=== PATIENT | male | born 1965 | race Caucasian/White ===

== ENCOUNTER 2018-06-04 07:43 | Inpatient (IN) ==
[2018-06-04] MEDS ORDERED: MoRPHine SULFATE 4 MG/ML 1 ML CARP\\VIAL IV STA ×2 (08:02→08:39)
--- NOTE | 2018-06-04 08:30 | XRay Report ---
SINGLE VIEW CHEST CLINICAL HISTORY: Atypical chest pain. FINDINGS: An AP, portable, upright chest radiograph is obtained. No prior studies are available for c omparison at the time of dictation. The examination is degraded by portable technique, apical lordoti c positioning, and patient rotation. The heart is top normal for projection. A coronary artery stent is noted. The mediastinal contour is within normal limits. Bibasilar atelectasis is observed. The domi ngs and pleural spaces are otherwise clear. No pneumothorax is seen. The bony thorax is grossly intac t. Fusion hardware is noted in the lower cervical spine. IMPRESSION: No acute cardiopulmonary abnormality. Electronically signed by: Jacob Duron M.D. 06/04/2018 8:29 AM
[2018-06-04 09:20] LABS: Basophils # (auto) 0.03 K/uL (0-0.2); Basophils % (auto) 0.4 %; Eosinophils # (auto) 0.13 K/uL (0-0.5); Eosinophils % (auto) 1.6 %; Hematocrit (blood only) 46.4 % (42-52); Immature Granulocytes # (auto) 0.02 K/uL (0.00-0.02); Immature Granulocytes % (auto) 0.2 %; Lymphocytes # (auto) 1.47 K/uL (1.2-3.4); Lymphocytes % (auto) 18.1 %; Mean Corpuscular Hgb Conc 34.5 g/dL (32-36); Mean Corpuscular Volume 87.2 fL (80-100); Mean Platelet Volume 11.7 fL (7.4-10.4); Monocytes # (auto) 0.68 K/uL (0.11-0.59); Monocytes % (auto) 8.4 %; Neutrophils # (auto) 5.81 K/uL (1.4-6.5); Neutrophils % (auto) 71.3 %; Platelet Count 165 K/uL (130-400); RDW Coefficient of Variation 12.6 % (11.5-14.5); RDW Standard Deviation 40.2 fL (36.4-46.3); Red Blood Count 5.32 M/uL (4.7-6.1); White Blood Count 8.14 K/uL (4.8-10.8)
[2018-06-04 09:27] LABS: Albumin Level 3.7 gm/dl (3.4-5.0); BUN Creatinine Ratio 18.4 (10-20); Calcium 9.2 mg/dl (8.5-10.1); Est GFR (African American) 106.2; Est GFR (Non-African American) 91.7; Potassium 3.6 mmol/L (3.5-5.1)
[2018-06-04 09:34] LABS: INR 0.9 (0.9-1.1); Partial Thromboplastin Ratio 0.9; Partial Thromboplastin Time 25.4 Seconds (21.0-31.0); Prothrombin Time 9.7 Seconds (9.0-12.0)
[2018-06-04 09:38] LABS: Bilirubin,Total 0.5 mg/dl (0.2-1); Globulin 3.8 gm/dl (2.5-4.0); Phosphorus 2.7 mg/dl (2.5-4.9); Total Protein 7.5 gm/dl (6.4-8.2); Troponin I 0.066 ng/ml (0-0.045)
[2018-06-04] MEDS ORDERED: OPTIRAY 320 125ml IV PRN (09:45)
[2018-06-04] MEDS ORDERED: NITROGLYCERIN 2% OINTMENT 30GM TUBE EXT STA (09:49)
[2018-06-04] MEDS ORDERED: fentaNYL citrate 100 MCG/2 ML VIAL IV ONE (09:49)
--- NOTE | 2018-06-04 09:58 | CT Scan Report ---
CT ANGIOGRAM OF THE CHEST CLINICAL HISTORY: Atypical chest pain. COMPARISON STUDY: Chest x-ray dated 06/04/2018. TECHNIQUE: Following the IV administration of 120 cc of Optiray 320, CT angiogram of the chest was pe rformed from the upper abdomen to the thoracic inlet utilizing the pulmonary embolus protocol. Images are reviewed in the axial, sagittal, and coronal planes. 3-D MIPS images are created and assessed. I V contrast was administered without complication. A dose lowering technique was utilized adhering to the principles of ALARA. CT DOSE: 562.80 mGy.cm FINDINGS: Thyroid: Imaged portions of the thyroid gland are normal in size and attenuation. Thoracic aorta: The thoracic aorta is normal in caliber and demonstrates standard 3-vessel arch anato my. No dissection is seen. Pulmonary vasculature: The pulmonary trunk is normal in caliber. There are no filling defects identif ied in main, lobar, or segmental pulmonary branches to suggest pulmonary embolus. Heart: The heart is enlarged and without pericardial effusion. There are coronary artery stents. Lungs and pleural spaces: The lung bases were partially excluded due to angiographic technique. There is no airspace consolidation or pleural effusion. Bibasilar atelectasis is noted. No airspace consol idation or pleural effusion is identified. Mediastinum: There is no mediastinal lymphadenopathy. Cristal: Clear. Axillae: There is no axillary lymphadenopathy. Upper abdomen: There is a small hiatal hernia. Partially visualized upper abdominal viscera is within normal limits. Skeletal structures: No lytic or blastic bony lesions are seen. Fusion hardware is noted in the lower cervical spine. IMPRESSION: 1. There is no evidence of pulmonary embolus in the main, lobar, or segmental pulmonary arteries. 2. Cardiomegaly. 3. There is no airspace consolidation or pleural effusion. Electronically signed by: Jacob Duron M.D. 06/04/2018 9:57 AM
[2018-06-04] MEDS ORDERED: HEPARIN SOD 5,000 UNIT/0.5 ML VIAL ONE (10:20)
[2018-06-04] MEDS ORDERED: HEPARIN 25000 UNIT/500 ML D5W IV ONE (10:20)
[2018-06-04] MEDS ORDERED: METOPROLOL TARTRATE 1 MG/ML VIAL IV STA (11:44)
[2018-06-04] MEDS ORDERED: METOPROLOL TARTRATE 1 MG/ML VIAL IV ONE (11:46)
--- NOTE | 2018-06-04 12:00 | Cardiology Consultation ---
Date of Consultation June 04, 2018 Assessment & Plan (1) Non-ST elevated myocardial infarction (non-STEMI): The patient's most recent recorded blood pressure when I got to see him included a systolic blood pressure in the range of 180. His blood pressure cuff was recycled and reading of 167/106 mmHg was obtained. Therefore ordered 5 mg of IV metoprolol. Topical nitroglycerin ointment is already in place. Due to his elevated troponin and ongoing symptoms suggestive angina, I believe his presentation is characteristic for a non-ST segment elevation myocardial infarction. I discussed the case with Dr. Cerrato of interventional cardiology, will plan for transfer from the emergency department to the cardiac catheterization laboratory. The patient has been seen by the hospitalist service, and arrangements are in process for him to have a telemetry bed for post procedure. The patient's prior to hospitalization doses of aspirin, clopidogrel, metoprolol, amlodipine, and rosuvastatin should be continued along with isosorbide mononitrate. History of Present Illness History of Present Illness Larry Hector is a 53 year old male seen in cardiology consultation in the emergency department per the request of Dr Fields for the evaluation of a suspected non ST elevation acute coronary syndrome. The patient has a long-standing history of coronary heart disease. His primary signal apprentice is Dr. Goldman of our practice. Patient has history of multiple previous coronary interventions/stents to the LAD on at least 2 occasions in [place], and stenting of the circumflex performed in [place] in the past. His most recent [place] coronary intervention took place in the fall 2016. He had previously had plain balloon angioplasty for in-stent restenosis of an LAD stent but had ongoing symptoms. He therefore underwent [place] cardiac [place] [facility] and underwent implantation of a drug- eluting stent within a previously placed stent. The patient had recurrent anginal symptoms in August, prompting repeat cardiac catheterization performed by Dr. Goldman at [facility]. Cardiac catheterization revealed patent LAD and circumflex stents at that time and therefore ongoing medication management was recommended. In the meantime, the patient states that he has been adherent to taking daily aspirin and clopidogrel. For about the last month however he has had recurrent exertional shortness of breath which is characteristic of his past anginal symptoms. This is progressed into being exertional chest tightness that radiates to his neck and left jaw. He has been taking upwards of 5-6 nitroglycerin tablets a day for relief over the last month. The symptoms have culminated with him having presented for his job at the [employer] He started his shift and at 3 AM experienced 10/15 chest discomfort. He presented to the emergency department. EKG x1 reveals diffuse T wave flattening without ST elevation. Compared to the prior EKG on file from August,, he had upright T waves in the inferior lateral leads at that time. His troponin is mildly elevated at 0.066 ng/ml. He has already had a CT angiogram which excluded pulmonary embolism. Currently in the emergency department, he has ongoing chest discomfort. An unfractionated heparin infusion has been initiated. Allergies Allergy/AdvReac Type Severity Reaction Status Date / Time cyclobenzaprine AdvReac Unknown Unverified 06/04/18 08:22 [From Piggybackr] Home Medications Home Medications Medication Instructions Recorded Confirmed Type amlodipine 2.5 mg PO DAILY 06/04/18 06/04/18 History aspirin [Aspir-81] 81 mg PO DAILY 06/04/18 06/04/18 History citalopram 20 mg PO DAILY 06/04/18 06/04/18 History clopidogrel 30 mg PO DAILY 06/04/18 06/04/18 History gabapentin 600 mg PO BID 06/04/18 06/04/18 History insulin aspart U-100 [Novolog 26 units SUBCUT TIDM 06/04/18 06/04/18 History Flexpen U-100 Insulin] isosorbide mononitrate 60 mg PO DAILY 06/04/18 06/04/18 History metoprolol tartrate 100 mg PO BID 06/04/18 06/04/18 History nitroglycerin [Nitrostat] 0.4 mg SUBLINGUAL UD 06/04/18 06/04/18 History pantoprazole 40 mg PO DAILY 06/04/18 06/04/18 History rosuvastatin 10 mg PO DAILY 06/04/18 06/04/18 History Patient History Medical History Diabetes Heart attack Presence of stent in LAD coronary artery Pulmonary embolism Social History Preferred Language: Guatemalan Feels Safe at Home: Yes Smoking Status: Never smoker Review of Systems 10 point review of systems reviewed and is negative with the exception of that above Physical Exam Vital Signs (Past 24 Hours): Last Vital Signs Temp 36.4 C L 06/04/18 07:47 Pulse 81 06/04/18 11:50 Resp 16 06/04/18 11:28 BP 167/106 H 06/04/18 11:50 Pulse Ox 97 06/04/18 10:28 Physical Exam: General: no acute distress and stated age Eyes: conjunctiva are pink and non-injected, sclera clear Neck: normal jugular venous pulse, no hepatojugular reflux Chest: normal shape and normal respiratory effort Lungs: clear to auscultation and percussion Cardiac Exam: - regular heart sounds, no murmurs, rubs, or gallops, no jugular venous distention Abdomen: abdomen soft, non-tender, no abnormal masses and no hepatosplenomegaly Extremities: no edema and no cyanosis Neuro:awake, coversant, follows commands, no focal motor deficits Psych: appropriate affect and insight. Results & Data Laboratory Results Cardiac Enzymes 06/04/18 Range/Units 08:06 AST 30 (15-37) U/L Troponin I 0.066 H* (0-0.045) ng/ml Coagulation 06/04/18 Range/Units 08:06 PT 9.7 (9.0-12.0) Seconds APTT 25.4 (21.0-31.0) Seconds CBC 06/04/18 Range/Units 08:06 WBC 8.14 (4.8-10.8) K/uL RBC 5.32 (4.7-6.1) M/uL Hgb 16.0 (14.0-18.0) g/dL Hct 46.4 (42-52) % Plt Count 165 (130-400) K/uL Neut # (Auto) 5.81 (1.4-6.5) K/uL Lymph # (Auto) 1.47 (1.2-3.4) K/uL Ada # (Auto) 0.68 H (0.11-0.59) K/uL Eos # (Auto) 0.13 (0-0.5) K/uL Baso # (Auto) 0.03 (0-0.2) K/uL Comprehensive Metabolic Panel 06/04/18 Range/Units 08:06 Sodium 137 (136-145) mmol/L Potassium 3.6 (3.5-5.1) mmol/L Chloride 103 (98-107) mmol/L Carbon Dioxide 31 (21-32) mmol/L BUN 18 (7-18) mg/dl Creatinine 0.95 (0.6-1.4) mg/dl Glucose 123 H (70-99) mg/dl Calcium 9.2 (8.5-10.1) mg/dl AST 30 (15-37) U/L ALT 45 (12-78) U/L Alkaline Phosphatase 112 (45-117) U/L Total Protein 7.5 (6.4-8.2) gm/dl Albumin 3.7 (3.4-5.0) gm/dl Intake and Output 06/03/18 06/04/18 06/04/18 22:59 06:59 14:59 Other: Weight 127 kg Patient Weight 06/05/18 06:59 Weight 127 kg Medications Administered Current Inpatient Medications Ioversol (Optiray 320 125ml) 120 ml IV ONCE PRN PRN Reason: Interaction Checking Stop: 06/08/18 09:44 Last Admin: 06/04/18 09:45 Dose: 1 ml Documented by:
[2018-06-04] MEDS ORDERED: ASPIRIN 81 MG CHEW PO STA (12:07)
--- NOTE | 2018-06-04 12:07 | History & Physical Report ---
Date of Service June 04, 2018 Assessment & Plan (1) Non-ST elevated myocardial infarction (non-STEMI): Spoke with cardiology - based on clinical history of progressive anginal symptoms and positive troponin, most likely diagnosis is NSTEMI - For cath today - Heparin gtt started in ED - Continue outpatient beta lesie, statin, aspirin, plavix, imdur. Pt was on Brillenta in the past but this was stopped due to concern that it was worsening shortness of breath - Monitor on telemetry - Follow troponin - Check lipid panel in AM - Check ECHO - pt cannot recall the last time this was done. (2) Diabetes: - Consult pharmacy for glycemic management - Check A1c in AM - Continue gabepentin for neuropathy (3) CAD (coronary artery disease): See above plan for NSTEMI (4) Dyslipidemia: - Continue outpatient statin therapy - clarified with patient that he is now on Crestor, not Lipitor as initially put in the med rec - Check lipid panel in AM (5) Diabetic neuropathy: (6) Acid reflux: - Continue outpatient PPI therapy - Consider adding H2 elsie for breakthrough symptoms (7) Essential hypertension: - Continue amlodipine, metoprolol as taken outpatient Pt reviewed with collaborating physician, Dr. Myers. Plan of care discussed and as outlined above - may adjust pending results of cath today. Await results of ECHO. updated at bedside. Pt to be followed starting tomorrow by Dr. Martinez. Bryant Garcia PA-C History of Present Illness Primary Care Provider: PCP - Werner Conway This is a 53 y/o male with a past history of CAD with stent placements, insulin- requiring diabetes with peripheral neuropathy, pulmonary embolus, hypertension and GERD who presents to the ED today with progressive dyspnea and chest pain, particularly on exertion. Pt reports his first cardiac cath was around 2014- 2015 when he had at least one stent placed. In September 2016, he underwent repeat cardiac cath due to anginal symptoms and was treated with PTCA for in-stent restenosis. He reports improvement that lasted about a month. He then decided to go to [place] for a second opinion. Had another cardiac cath on 12/31/16 during which a drug-eluting stent was placed in the prior placed stent in the L AD. He did have some improvement after this procedure until summer 2017 when he started with progressive respiratory symptoms. Seen again by cardiology (following locally with Dr. Goldman) and underwent repeat cardiac cath on 09/16/17 that was negative. He reports continued chest pain since that time which he describes as a chronic issue. Lost to cardiology follow-up after the cath. Over the past month, pt reports progressive chest pain and dyspnea but particularly worse the past two weeks. His main complaint is dyspnea on exertion, particularly with steps, eating or talking for long periods. He can do no more than one flight of steps before he has to stop and rest for a few minutes. His chest pain also gets worse with exertion. He describes a mostly non-productive cough although occasionally brings up white foamy sputum that is rarely blood-tinged (typically related to coughing hard). He has been sleeping more than usual and is feels easily fatigued. He notes orthopnea requiring him to sleep propped on 3-4 pillows. He gets lightheaded with exertion followed by increased fatigue. Denies syncopal episodes. He has noted a sensation of "skipped beats" but denies "racing heart." The chronic chest pain has been worse over the past two weeks - it may radiate to left jaw/shoulder and to back. He has been taking up to seven nitro per day for this pain with only partial relief. Appetite is decreased with nausea and heartburn at times but no vomiting. He does take pantoprazole 20 mg daily. Moving bowels at baseline of 4-5x/day - no melena or hematochezia. The patient has a history of insulin- requiring diabetes - he reports last A1c was around 9 (apparently improved from a high of 14). Allergies Allergy/AdvReac Type Severity Reaction Status Date / Time cyclobenzaprine AdvReac Unknown Unverified 06/04/18 08:22 [From Flexeril] Home Medications Home Medications Medication Instructions Recorded Confirmed Type amlodipine 2.5 mg PO DAILY 06/04/18 06/04/18 History aspirin [Aspir-81] 81 mg PO DAILY 06/04/18 06/04/18 History citalopram 20 mg PO DAILY 06/04/18 06/04/18 History clopidogrel 30 mg PO DAILY 06/04/18 06/04/18 History gabapentin 600 mg PO BID 06/04/18 06/04/18 History insulin aspart U-100 [Novolog 26 units SUBCUT TIDM 06/04/18 06/04/18 History Flexpen U-100 Insulin] isosorbide mononitrate 60 mg PO DAILY 06/04/18 06/04/18 History metoprolol tartrate 75 mg PO BID 06/04/18 06/04/18 History nitroglycerin [Nitrostat] 0.4 mg SUBLINGUAL UD 06/04/18 06/04/18 History pantoprazole 40 mg PO DAILY 06/04/18 06/04/18 History rosuvastatin 10 mg PO DAILY 06/04/18 06/04/18 History Past Med/Surg History Medical History Diabetes Insulin-requiring CAD (coronary artery disease) Dyslipidemia Diabetic neuropathy Acid reflux Essential hypertension Heart attack Presence of stent in LAD coronary artery Pulmonary embolism Surgical History History of hernia surgery History of spinal surgery Hx of cardiac cath 2014/2015, 2017 x2, 2018 Social History Preferred Language: Canadian Feels Safe at Home: Yes Smoking Status: Never smoker Hx Substance Use: No Review of Systems All systems reviewed & are unremarkable except as noted in HPI & below Constitutional: + fatigue and + anorexia; no fever, no chills and no malaise Eyes: no diplopia and no worsening vision Ear, Nose, Mouth, Throat: no nasal congestion, no sore throat and no dysphagia Respiratory: + cough and + dyspnea on exertion; no chest congestion and no wheezing Cardiovascular: + chest pain, + chest pain with activity, + radiating jaw, neck or arm pain, + orthopnea, + paroxysmal nocturnal dyspnea, + lightheadedness and + edema; no syncope Gastrointestinal: + heartburn and + nausea; no abdominal pain, no vomiting, no change in bowel habits, no blood in stools and no melena Genitourinary (Male): + urinary frequency; no dysuria, no difficulty urinating and no urinary hesitancy Musculoskeletal: + back pain and + joint pain (chronic) Integumentary: no rash and no urticaria Neurologic: + headache(s); no falls, no seizure-like activity and no syncope Chronic neuropathy related to diabetes Psychiatric: no depression and no anxiety Physical Exam Vital Signs (Past 24 Hours): Last Vital Signs Temp 36.4 C L 06/04/18 07:47 Pulse 81 06/04/18 11:50 Resp 16 06/04/18 11:28 BP 167/106 H 06/04/18 11:50 Pulse Ox 97 04/05/19 10:28 Constitutional: WD/WN, vitals as above Eyes: PERRL, conjunctivae normal, anicteric sclerae EOM intact bilaterally ENMT: external ear and nose normal, oropharynx normal Neck: trachea midline Respiratory: normal respiratory effort, lungs clear to auscultation Auscultation: no rales, no rhonchi and no wheezes Cardiovascular: Rate/Rhythm: regular rate and regular rhythm Heart Sounds: + murmur; no gallop and no cardiac rub Vessels: no JVD and no carotid bruit Gastrointestinal (Abdomen): Inspection/Auscultation: normal bowel sounds; abdomen not distended Percussion/Palpation: abdomen soft; abdomen nontender Musculoskeletal: Extremities: no cyanosis and no clubbing Skin: no rashes, warm and dry normal turgor; no jaundice Neurologic: moves all extremities; no focal motor deficits Cranial Nerves: tongue midline and able to rotate head bilaterally Psychiatric: A+Ox3, euthymic affect Results & Data Laboratory Results Laboratory Results - last 24 hr 06/04/18 06/04/18 06/04/18 08:06 08:06 08:06 WBC 8.14 RBC 5.32 Hgb 16.0 Hct 46.4 MCV 87.2 MCH 30.1 MCHC 34.5 RDW Std Deviation 40.2 RDW Coeff of Chan 12.6 Plt Count 165 MPV 11.7 H Immature Gran % (Auto) 0.2 Neut % (Auto) 71.3 Lymph % (Auto) 18.1 Perkins % (Auto) 8.4 Eos % (Auto) 1.6 Baso % (Auto) 0.4 Immature Gran # (Auto) 0.02 Neut # (Auto) 5.81 Lymph # (Auto) 1.47 Perkins # (Auto) 0.68 H Eos # (Auto) 0.13 Baso # (Auto) 0.03 PT 9.7 INR 0.9 APTT 25.4 PTT Ratio 0.9 Sodium 137 Potassium 3.6 Chloride 103 Carbon Dioxide 31 Anion Gap 4.0 BUN 18 Creatinine 0.95 Est Cr Clr Drug Dosing 127.0 Est GFR ( Amer) 106.2 Est GFR (Non-Af Amer) 91.7 BUN/Creatinine Ratio 18.4 Glucose 123 H Calcium 9.2 Phosphorus 2.7 Magnesium 2.0 Total Bilirubin 0.5 AST 30 ALT 45 Alkaline Phosphatase 112 Troponin I 0.066 H* NT-Pro-B Natriuret Pep Total Protein 7.5 Albumin 3.7 Globulin 3.8 Albumin/Globulin Ratio 1.0 Lipase 69 L 06/04/18 08:06 WBC RBC Hgb Hct MCV MCH MCHC RDW Std Deviation RDW Coeff of Chan Plt Count MPV Immature Gran % (Auto) Neut % (Auto) Lymph % (Auto) Perkins % (Auto) Eos % (Auto) Baso % (Auto) Immature Gran # (Auto) Neut # (Auto) Lymph # (Auto) Perkins # (Auto) Eos # (Auto) Baso # (Auto) PT INR APTT PTT Ratio Sodium Potassium Chloride Carbon Dioxide Anion Gap BUN Creatinine Est Cr Clr Drug Dosing Est GFR ( Amer) Est GFR (Non-Af Amer) BUN/Creatinine Ratio Glucose Calcium Phosphorus Magnesium Total Bilirubin AST ALT Alkaline Phosphatase Troponin I NT-Pro-B Natriuret Pep 60 Total Protein Albumin Globulin Albumin/Globulin Ratio Lipase Diagnostic Findings CXR 06/04/18 - IMPRESSION: No acute cardiopulmonary abnormality. Chest CTA 06/04/18 - IMPRESSION: 1. There is no evidence of pulmonary embolus in the main, lobar, or segmental pulmonary arteries. 2. Cardiomegaly. 3. There is no airspace consolidation or pleural effusion. Medications Administered Ioversol (Optiray 320 125ml) 120 ml IV ONCE PRN PRN Reason: Interaction Checking Stop: 06/08/18 09:44 Last Admin: 06/04/18 09:45 Dose: 1 ml Documented by: [id number] Discontinued Medications Fentanyl Citrate (Fentanyl Citrate) 100 mcg IV NOW ONE Stop: 06/04/18 09:50 Last Admin: 06/04/18 09:59 Dose: 100 mcg Documented by: [id number] Heparin Sodium (Porcine) (Heparin Sodium (Porcine)) Confirm Administered Dose 10,000 units .ROUTE .STK-MED ONE Stop: 06/04/18 10:21 Last Admin: 06/04/18 10:24 Dose: 8,000 units Documented by: [id number] Cosigned by: [id number] Heparin Sodium/Dextrose () 1 ea IV NOW STA; Protocol Stop: 06/04/18 09:50 Last Admin: 06/04/18 10:30 Dose: Not Given Documented by: [id number] Heparin Sodium/Dextrose (Heparin Sodium/Dextrose) Confirm Administered Dose 25,000 units IV .STK-MED ONE Stop: 06/04/18 10:21 Last Admin: 06/04/18 10:23 Dose: 1,800 units Documented by: [id number] Cosigned by: [id number] Metoprolol Tartrate (Lopressor) Confirm Administered Dose 5 mg IV .STK-MED ONE Stop: 06/04/18 11:47 Last Admin: 06/04/18 11:50 Dose: 5 mg Documented by: [id number] Morphine Sulfate (Morphine Sulfate) 4 mg IV NOW STA Stop: 06/04/18 08:03 Last Admin: 06/04/18 08:15 Dose: 4 mg Documented by: [id number] Morphine Sulfate (Morphine Sulfate) 4 mg IV NOW STA Stop: 06/04/18 08:40 Last Admin: 06/04/18 08:50 Dose: 4 mg Documented by: [id number] Nitroglycerin (Nitro-Bid 2%) 1 inch EXT NOW STA Stop: 06/04/18 09:50 Last Admin: 06/04/18 09:59 Dose: 1 inch Documented by: [id number] Supervising Physician Co-Signing Physician Notes I have seen and examined the patient and have discussed the case with the provider above. I agree with the assessment and plan as stated. Tolerated the heart catheterization well. Denies chest pain. In stent restenosis was found and ANNIKA was placed to mid-LAD. Continue to recover on telemetry floor pending further Cardiology recommendations. DO Louis (1) Diabetic neuropathy Diabetes mellitus complication detail: diabetic polyneuropathy Diabetes mellitus type: type 2 Qualified Code(s): E11.42 - Type 2 diabetes mellitus with diabetic polyneuropathy (2) Diabetes Diabetes mellitus complication detail: with unspecified neuropathy Diabetes mellitus complication status: with neurologic complications Diabetes mellitus penitentiary insulin use: with penitentiary use Diabetes mellitus type: type 2 Qualified Code(s): E11.40 - Type 2 diabetes mellitus with diabetic neuropathy, unspecified; Z79.4 - [employer] (current) use of insulin (3) CAD (coronary artery disease) Associated angina: with unspecified angina Coronary Disease-Associated Artery/Lesion type: [place] artery [place] vs. transplanted heart: [place] heart Qualified Code(s): I25.119 - Atherosclerotic heart disease of [place] coronary artery with unspecified angina pectoris (4) Acid reflux Esophagitis presence: esophagitis presence not specified Qualified Code(s): K21.9 - Gastro-esophageal reflux disease without esophagitis
[2018-06-04] MEDS ORDERED: MIDAZOLAM HCL 1 MG/ML 2ML VIAL ONE (12:22)
[2018-06-04] MEDS ORDERED: HEPARIN (PORCINE) 1000 UNIT/ML 10 ML (CATH LAB USE ONLY) ONE (12:22)
[2018-06-04] MEDS ORDERED: NiCARDipine HCL INJ 2.5 MG/ML 10 ML AMP ONE (12:22)
[2018-06-04] MEDS ORDERED: fentaNYL citrate 100 MCG/2 ML VIAL ONE (12:22)
[2018-06-04] MEDS ORDERED: NITROGLYCERIN/D5W 100MCG/ML 20ML SYR ONE (12:24)
[2018-06-04] MEDS ORDERED: ASPIRIN 81 MG CHEW ONE (12:26)
[2018-06-04] MEDS ORDERED: CLOPIDOGREL BISULFATE 300 MG TAB ONE (14:31)
--- NOTE | 2018-06-04 14:34 | Emergency Department Note ---
Entered by Lizzie Alejo acting as a scribe for History of Present Illness General Chief complaint: Chest Pain Stated complaint: chest pain Time Seen by Provider: 06/04/18 07:49 Source: patient History of Present Illness Provider complaint: chest pain Onset (ago): week(s) 2 Location: chest Pain Consistency: + other (persistent) Maximum Pain Intensity: 9 Quality: + other (worsening) Associated symptoms: + other (shortness of breath, productive cough, weight gain, leg swelling, nausea. Denies: urinary symptoms, bowel movement symptoms, changes in eating or drinking.) Treatments prior to arrival: other (nitroglycerin) The patient is a 53 year old white male w/ PMHx of [place], s/p stent placement, PE, and diabetes who presents to the ED w/ CC of persistent, worsening chest pain beginning 2 weeks ago. He notes shortness of breath that is exacerbated by laying flat, walking, and eating. The patient states he has a productive cough, and has been producing white sputum. He notes weight gain and swelling in his legs. The patient states he has been nauseous. He denies urinary symptoms, bowel movement symptoms, or changes in eating or drinking. The patient denies recent travel. He states he has been taking nitroglycerin, and took about 6 today, which did not improve his symptoms. The patient reports he takes Plavix and baby aspirin daily. Home Medications Home Medications Medication Instructions Recorded Confirmed Type amlodipine 2.5 mg PO DAILY 06/04/18 06/04/18 History aspirin [Aspir-81] 81 mg PO DAILY 06/04/18 06/04/18 History citalopram 20 mg PO DAILY 06/04/18 06/04/18 History clopidogrel 30 mg PO DAILY 06/04/18 06/04/18 History gabapentin 600 mg PO BID 06/04/18 06/04/18 History insulin aspart U-100 [Novolog 26 units SUBCUT TIDM 06/04/18 06/04/18 History Flexpen U-100 Insulin] isosorbide mononitrate 60 mg PO DAILY 06/04/18 06/04/18 History metoprolol tartrate 100 mg PO BID 06/04/18 06/04/18 History nitroglycerin [Nitrostat] 0.4 mg SUBLINGUAL UD 06/04/18 06/04/18 History pantoprazole 40 mg PO DAILY 06/04/18 06/04/18 History rosuvastatin 10 mg PO DAILY 06/04/18 06/04/18 History Allergies Allergy/AdvReac Type Severity Reaction Status Date / Time cyclobenzaprine AdvReac Unknown Unverified 06/04/18 08:22 [From Flexeril] Past Med/Surg History Medical History Diabetes Insulin-requiring CAD (coronary artery disease) Dyslipidemia Diabetic neuropathy Acid reflux Essential hypertension Heart attack Presence of stent in LAD coronary artery Pulmonary embolism Surgical History History of hernia surgery History of spinal surgery Hx of cardiac cath 2014/2015, 2017 x2, 2018 Social History Preferred Language: Greek Feels Safe at Home: Yes Smoking Status: Never smoker Hx Substance Use: No Review of Systems See HPI for pertinent positives & negatives. and A total of 10 systems reviewed and were otherwise negative Physical Exam Vital Signs Vital Signs - 24 hr 06/04/18 07:47 06/04/18 08:48 06/04/18 09:49 Temperature 36.4 C L Temperature Source Oral Sepsis Recent Fever Within 48 Hours No Sepsis New/Unexplained Change in Mental Status No Sepsis Action Taken by Nursing No Action Required Pulse Rate 82 Pulse Rate [Apical] 78 76 Respiratory Rate 18 16 18 Respiratory Effort / Characteristics Non-Labored Respiratory Depth Normal Normal Respiratory Pattern Regular Blood Pressure 164/100 H Blood Pressure [Right Arm] 136/76 191/112 H Blood Pressure Mean 121 Blood Pressure Mean [Right Arm] 96 138 Blood Pressure Position Lying Pulse Oximetry 97 97 97 Oxygen Delivery Method Room Air Room Air Room Air 06/04/18 10:28 06/04/18 11:28 06/04/18 11:50 Temperature Temperature Source Sepsis Recent Fever Within 48 Hours Sepsis New/Unexplained Change in Mental Status Sepsis Action Taken by Nursing Pulse Rate 81 Pulse Rate [Apical] 74 73 Respiratory Rate 16 16 Respiratory Effort / Characteristics Respiratory Depth Respiratory Pattern Blood Pressure 167/106 H Blood Pressure [Right Arm] 132/70 189/118 H Blood Pressure Mean Blood Pressure Mean [Right Arm] 90 141 Blood Pressure Position Pulse Oximetry 97 Oxygen Delivery Method Room Air GENERAL: Well appearing, well nourished, NAD, non-toxic. EYE EXAM: Normal conjunctiva. PERRL, no anisocoria and EOM's grossly intact w/o pain. OROPHARYNX: Moist MM. NECK: Supple, no nuchal rigidity, no adenopathy, non-tender. No signs of meningismus. LUNGS: Clear to auscultation. Normal chest wall mechanics. HEART: NSR, no MRG. CHEST WALL: No reproducible chest wall pain ABDOMEN: Abdomen soft, non-tender, normo-active bowel sounds, no masses, no rebound or guarding. BACK: No CVA TTP. SKIN: No rashes and no bruising. UPPER EXTREMITIES: Upper extremities are grossly normal. LOWER EXTREMITIES: No calf pain. 1+ pretibial edema, 2+ pedal edema to ankles, no asymmetric swelling. Negative Homans. NEURO EXAM: A and O x3. GCS 15. Moves all 4 extremities on command w/o issue. Course 0755: Past medical records reviewed. The patient was evaluated in room C2B, and a complete history and physical examination were performed. 1009: I discussed the patients case with Dr. Pruitt, central aisle cashier. 1037: I reviewed the patient's case with Aury Garcia PA-C, [facility]. She will evaluate the patient for further management. 1041: Upon reevaluation, the patient is resting. I discussed test results. They verbalized agreement with the treatment plan. 1215: Discussed the case with Dr. Pruitt, central aisle cashier. He has evaluated the patient and will take him to the label coder. Consultations Consultation #1: Dr. Pruitt, central aisle cashier. Time: 10:09 Consultation #2: Aury Garcia PA-C, [facility] Time: 10:37 Administered Medications Ioversol (Optiray 320 125ml) 120 ml IV ONCE PRN PRN Reason: Interaction Checking Stop: 06/08/18 09:44 Last Admin: 06/04/18 09:45 Dose: 1 ml Documented by: [id number] Discontinued Medications Aspirin (Aspirin Chew) 283 mg PO NOW STA Stop: 06/04/18 12:08 Last Admin: 06/04/18 12:40 Dose: 283 mg Documented by: [id number] Aspirin (Aspirin Chew) Confirm Administered Dose 243 mg .ROUTE .STK-MED ONE Stop: 06/04/18 12:27 Last Admin: 06/04/18 12:41 Dose: Not Given Documented by: [id number] Fentanyl Citrate (Fentanyl Citrate) 100 mcg IV NOW ONE Stop: 06/04/18 09:50 Last Admin: 06/04/18 09:59 Dose: 100 mcg Documented by: [id number] Heparin Sodium (Porcine) (Heparin Sodium (Porcine)) Confirm Administered Dose 10,000 units .ROUTE .STK-MED ONE Stop: 06/04/18 10:21 Last Admin: 06/04/18 10:24 Dose: 8,000 units Documented by: [id number] Cosigned by: [id number] Heparin Sodium/Dextrose () 1 ea IV NOW STA; Protocol Stop: 06/04/18 09:50 Last Admin: 06/04/18 10:30 Dose: Not Given Documented by: [id number] Heparin Sodium/Dextrose (Heparin Sodium/Dextrose) Confirm Administered Dose 25,000 units IV .STK-MED ONE Stop: 06/04/18 10:21 Last Admin: 06/04/18 10:23 Dose: 1,800 units Documented by: [id number] Cosigned by: [id number] Heparin Sodium/Sodium Chloride (Heparin/Nss 1000 Unit/500ml Flush Bag) Confirm Administered Dose 3,000 units IV .ST-MED ONE Stop: 06/04/18 12:23 Last Admin: 06/04/18 12:40 Dose: 3,000 units Documented by: [id number] Metoprolol Tartrate (Lopressor) Confirm Administered Dose 5 mg IV .ST-MED ONE Stop: 06/04/18 11:47 Last Admin: 06/04/18 11:50 Dose: 5 mg Documented by: [id number] Morphine Sulfate (Morphine Sulfate) 4 mg IV NOW STA Stop: 06/04/18 08:03 Last Admin: 06/04/18 08:15 Dose: 4 mg Documented by: [id number] Morphine Sulfate (Morphine Sulfate) 4 mg IV NOW STA Stop: 06/04/18 08:40 Last Admin: 06/04/18 08:50 Dose: 4 mg Documented by: [id number] Nicardipine HCl (Cardene) Confirm Administered Dose 25 mg .ROUTE .STK-MED ONE Stop: 06/04/18 12:23 Last Admin: 06/04/18 12:40 Dose: 25 mg Documented by: [id number] Nitroglycerin (Nitro-Bid 2%) 1 inch EXT NOW STA Stop: 06/04/18 09:50 Last Admin: 06/04/18 09:59 Dose: 1 inch Documented by: [id number] Nitroglycerin/Dextrose (Nitroglycerin/D5w 100 Mcg/Ml 20ml Syringe) Confirm Administered Dose 2,000 mcg .ROUTE .STK-MED ONE Stop: 06/04/18 12:25 Last Admin: 06/04/18 12:41 Dose: 2,000 mcg Documented by: [id number] Medical Decision Making Medical Records Attestation: I reviewed the patient's medical records. Home Medications Current Medication List: was personally reviewed by me Laboratory Data Attestation: I reviewed the patient's lab results. Result diagrams: 06/04/18 08:06 06/04/18 08:06 Lab Results 06/04/18 06/04/18 06/04/18 Range/Units 08:06 08:06 08:06 WBC 8.14 (4.8-10.8) K/uL RBC 5.32 (4.7-6.1) M/uL Hgb 16.0 (14.0-18.0) g/dL Hct 46.4 (42-52) % MCV 87.2 (80-100) fL MCH 30.1 (25-34) pg MCHC 34.5 (32-36) g/dL RDW Std Deviation 40.2 (36.4-46.3) fL RDW Coeff of Chan 12.6 (11.5-14.5) % Plt Count 165 (130-400) K/uL MPV 11.7 H (7.4-10.4) fL Immature Gran % (Auto) 0.2 % Neut % (Auto) 71.3 % Lymph % (Auto) 18.1 % Randolph % (Auto) 8.4 % Eos % (Auto) 1.6 % Baso % (Auto) 0.4 % Immature Gran # (Auto) 0.02 (0.00-0.02) K/uL Neut # (Auto) 5.81 (1.4-6.5) K/uL Lymph # (Auto) 1.47 (1.2-3.4) K/uL Randolph # (Auto) 0.68 H (0.11-0.59) K/uL Eos # (Auto) 0.13 (0-0.5) K/uL Baso # (Auto) 0.03 (0-0.2) K/uL PT 9.7 (9.0-12.0) Seconds INR 0.9 (0.9-1.1) APTT 25.4 (21.0-31.0) Seconds PTT Ratio 0.9 Sodium 137 (136-145) mmol/L Potassium 3.6 (3.5-5.1) mmol/L Chloride 103 (98-107) mmol/L Carbon Dioxide 31 (21-32) mmol/L Anion Gap 4.0 (3-11) BUN 18 (7-18) mg/dl Creatinine 0.95 (0.6-1.4) mg/dl Est Cr Clr Drug Dosing 127.0 ml/min Est GFR ( Amer) 106.2 Est GFR (Non-Af Amer) 91.7 BUN/Creatinine Ratio 18.4 (10-20) Glucose 123 H (70-99) mg/dl Calcium 9.2 (8.5-10.1) mg/dl Phosphorus 2.7 (2.5-4.9) mg/dl Magnesium 2.0 (1.8-2.4) mg/dl Total Bilirubin 0.5 (0.2-1) mg/dl AST 30 (15-37) U/L ALT 45 (12-78) U/L Alkaline Phosphatase 112 (45-117) U/L Troponin I 0.066 H* (0-0.045) ng/ml NT-Pro-B Natriuret Pep (0-900) pg/ml Total Protein 7.5 (6.4-8.2) gm/dl Albumin 3.7 (3.4-5.0) gm/dl Globulin 3.8 (2.5-4.0) gm/dl Albumin/Globulin Ratio 1.0 (0.9-2) Lipase 69 L (73-393) U/L 06/04/18 Range/Units 08:06 WBC (4.8-10.8) K/uL RBC (4.7-6.1) M/uL Hgb (14.0-18.0) g/dL Hct (42-52) % MCV (80-100) fL MCH (25-34) pg MCHC (32-36) g/dL RDW Std Deviation (36.4-46.3) fL RDW Coeff of Chan (11.5-14.5) % Plt Count (130-400) K/uL MPV (7.4-10.4) fL Immature Gran % (Auto) % Neut % (Auto) % Lymph % (Auto) % Randolph % (Auto) % Eos % (Auto) % Baso % (Auto) % Immature Gran # (Auto) (0.00-0.02) K/uL Neut # (Auto) (1.4-6.5) K/uL Lymph # (Auto) (1.2-3.4) K/uL Randolph # (Auto) (0.11-0.59) K/uL Eos # (Auto) (0-0.5) K/uL Baso # (Auto) (0-0.2) K/uL PT (9.0-12.0) Seconds INR (0.9-1.1) APTT (21.0-31.0) Seconds PTT Ratio Sodium (136-145) mmol/L Potassium (3.5-5.1) mmol/L Chloride (98-107) mmol/L Carbon Dioxide (21-32) mmol/L Anion Gap (3-11) BUN (7-18) mg/dl Creatinine (0.6-1.4) mg/dl Est Cr Clr Drug Dosing ml/min Est GFR ( Amer) Est GFR (Non-Af Amer) BUN/Creatinine Ratio (10-20) Glucose (70-99) mg/dl Calcium (8.5-10.1) mg/dl Phosphorus (2.5-4.9) mg/dl Magnesium (1.8-2.4) mg/dl Total Bilirubin (0.2-1) mg/dl AST (15-37) U/L ALT (12-78) U/L Alkaline Phosphatase (45-117) U/L Troponin I (0-0.045) ng/ml NT-Pro-B Natriuret Pep 60 (0-900) pg/ml Total Protein (6.4-8.2) gm/dl Albumin (3.4-5.0) gm/dl Globulin (2.5-4.0) gm/dl Albumin/Globulin Ratio (0.9-2) Lipase (73-393) U/L Imaging Data Radiologist's Impression: Radiology results as stated below per my review and the radiologist's interpretation: SINGLE VIEW CHEST CLINICAL HISTORY: Atypical chest pain. FINDINGS: An AP, portable, upright chest radiograph is obtained. No prior studies are available for comparison at the time of dictation. The examination is degraded by portable technique, apical lordotic positioning, and patient rotation. The heart is top normal for projection. A coronary artery stent is noted. The mediastinal contour is within normal limits. Bibasilar atelectasis is observed. The lungs and pleural spaces are otherwise clear. No pneumothorax is seen. The bony thorax is grossly intact. Fusion hardware is noted in the lower cervical spine. IMPRESSION: No acute cardiopulmonary abnormality. Electronically signed by: Jacob Duron M.D. 06/04/2018 8:[address] ANGIOGRAM OF THE CHEST CLINICAL HISTORY: Atypical chest pain. COMPARISON STUDY: Chest x-ray dated 06/04/2018. TECHNIQUE: Following the IV administration of 120 cc of Optiray 320, CT angiogram of the chest was performed from the upper abdomen to the thoracic inlet utilizing the pulmonary embolus protocol. Images are reviewed in the ax ial, sagittal, and coronal planes. 3-D MIPS images are created and assessed. IV contrast was administered without complication. A dose lowering technique was utilized adhering to the principles of ALARA. CT DOSE: 562.80 mGy.cm FINDINGS: Thyroid: Imaged portions of the thyroid gland are normal in size and attenuation. Thoracic aorta: The thoracic aorta is normal in caliber and demonstrates sta ndard 3-vessel arch anatomy. No dissection is seen. Pulmonary vasculature: The pulmonary trunk is normal in caliber. There are no filling defects identified in main, lobar, or segmental pulmonary branches to suggest pulmonary embolus. Heart: The heart is enlarged and without pericardial effusion. There are coronary artery stents. Lungs and pleural spaces: The lung bases were partially excluded due to angiographic technique. There is no airspace consolidation or pleural effusion. Bibasilar atelectasis is noted. No airspace consolidation or pleural effusion is identified. Mediastinum: There is no mediastinal lymphadenopathy. Cristal: Clear. Axillae: There is no axillary lymphadenopathy. Upper abdomen: There is a small hiatal hernia. Partially visualized upper abdominal viscera is within normal limits. Skeletal structures: No lytic or blastic bony lesions are seen. Fusion hardware is noted in the lower cervical spine. IMPRESSION: 1. There is no evidence of pulmonary embolus in the main, lobar, or segmental pulmonary arteries. 2. Cardiomegaly. 3. There is no airspace consolidation or pleural effusion. Electronically signed by: Jacob Duron M.D. 06/04/2018 9:57 AM ECG Data Attestation: I personally reviewed and interpreted this ECG as follows: Indication: chest pain Rate (beats per minute): 81 Rhythm: normal sinus Findings: + other (Normal intervals. Normal axis. ), + Q waves (Lead 3), + ST depression (Questionably, very slight, in lateral leads. ) and + T-wave inversion (High lateral) Blood Pressure Blood Pressure Findings: Elevated blood pressure Blood Pressure Disposition: further management by hospitalist MDM Narrative The patient is a 53 year old white male w/ PMHx of [place], s/p stent placement, PE, and diabetes who presents to the ED w/ CC of persistent, worsening chest pain beginning 2 weeks ago. Etiologies such as shingles, musculoskeletal pain, pericarditis, myocarditis, cardiac ischemia, pericardial tamponade, pneumonia, pneumothorax, pleural effusion, hemothorax, pleurisy, aortic pathology, pulmonary embolism, intra- abdominal process, as well as others were considered. Patient was seen and evaluated the bedside. The patient was complaining of worsening chest pain associated shortness of breath. The patient does have a known history of CAD status post stent placement. Patient was having persistent chest pain not amenable to nitro. The patient does complain of a mild productiv e cough but it is not purulent sputum. The patient did have blood work completed along with EKG troponin chest x-ray. Patient's EKG shows some mild T wave inversion in the high lateral leads and very slight depression questionably in the lateral leads. Patient's troponin is positive. Given the patient's ongoing chest pain he was ordered additional Nitropaste and heparin drip. He was also given aspirin. I did speak with the on-call central aisle cashier as well as hospitalist. After further discussion with the central aisle cashier that will be taken the patient to the catheterization lab for a heart catheterization. Patient was admitted to the medicine service. Impression & Plan Non-ST elevated myocardial infarction (non-STEMI) Critical Care Time I have personally spent greater than 80 minutes of critical care time in the direct management of this patient. This includes bedside care, interpretation of diagnostic studies, and testing, discussion with consultants, patient, and family members, and other required patient management activities. This 80 minutes is in excess of all separately billable procedures. Critical Care Time: Yes Total Critical Care Time: 80 Discharge Plan Visit Data Chief Complaint: Chest Pain Stated Complaint: chest pain ED Provider: Cuauhtemoc Fields Discharge Problem: Non-ST elevated myocardial infarction (non-STEMI) Patient Disposition: Being Evaluated by Hospitalist Discharge Instructions Interventions: ED Discharge Assessment Last Done: 06/04/18 12:18 The scribe's documentation has been prepared under my direction and personally reviewed by me in its entirety. I confirm that the note above accurately reflects all work, treatment, procedures, and medical decision making performed by me.
--- NOTE | 2018-06-04 14:35 | Post Anesthesia Assessment ---
Date of Service June 04, 2018 Post Sedation Assessment Vital Signs Temp Pulse Pulse Resp BP BP Pulse Ox 06/04/18 11:50 81 167/106 H 06/04/18 11:28 73 16 189/118 H 06/04/18 10:28 74 16 132/70 97 06/04/18 09:49 76 18 191/112 H 97 06/04/18 08:48 78 16 136/76 97 06/04/18 07:47 36.4 C L 82 18 164/100 H 97 Recovery Score Activity: Moves 4 extremities Respiration: Deep Breath/Cough Circulation: +/-20% PreAnes Value Consciousness: Fully Awake Oxygen Saturation: O2 needed for >90% Discharge Sedation Level of Care: Fast Track Phase II Post Sedation Plan On clinical assessment, the patient appears to have tolerated the sedation without complications. Patient is recovering as anticipated. Patient will continue to be monitored by nursing and may be discharged when sedation discharge criteria are met per below protocol. Upon Completions of procedure and additional 15 minutes continue every 5 minute vital signs and the P.A.R. score; then discharge to a Phase I or Fast Track to Phase II per the following guidelines: * Discharge Patient to appropriate Phase II area if PAR is 8 or greater or return to pre- procedure baseline. The post - procedure orders will be as directed. * If PAR score is less than 8 or not return to pre-procedure baseline then patient will follow Phase I monitoring till PAR is reached for Phase II. The Phase I may be done in procedure room or may call to secure a Phase I area. * If naloxone or flumazenil are used for reversal, hold in Phase I for continued monitoring from when last reversal dose was given for a minimum of 60 minutes or longer pending the nurse and/or physician discretion of patient condition before discharge to Phase II. Please call the Sedation Physician to re-evaluate and complete post-note for discharge to Phase II area. Do NOT discharge from procedure sedation or Phase 1 until post- sedation evaluation note is complete by procedure /sedation MD Sedation Discharge Instructions to be given to the patient at discharge to home.
[2018-06-04] MEDS ORDERED: ONDANSETRON INJ 2 MG/ML 2 ML VIAL IV PRN (14:42)
[2018-06-04] MEDS ORDERED: ACETAMINOPHEN 325 MG TAB PO PRN (14:42)
--- NOTE | 2018-06-04 14:42 | Cardiac Catheterization ---
Cardiac Cath Procedure: Brief Procedure Date June 04, 2018 Pre-Procedure Diagnosis Pre-Procedure Diagnosis: Non STEMI AUC Score AUC Score: 7 Post-Procedure Diagnosis Post-Procedure Diagnosis: Severe CAD and Successful PCI Procedure(s) Performed Procedure(s) Performed: Coronary Angiography, Left Heart Cath, PTCA, Drug Eluting Stent and Fractional Flow Herminie Cable Former Jd Cerrato MD Business Risk Consultant(s) Jourdan Estimated Blood Loss Estimated Blood Loss: 20 Medication(s) Medication(s): Clopidogrel, Fentanyl, Heparin, Lidocaine 1%, Nicardipine, Nitroglycerin and Versed Preliminary Findings Severe mid to distal in-stent restenosis Moderate to severe mid RCA disease. PCI with single ANNIKA (3.0 x 28 Xience ANNIKA) to mid LAD and POBA to distal LAD stent IFR of moderate RCA (iFR 0.92). Recommendations Recommendations: PCI without planned CABG Specimens Specimens: None Drains Drains: none Anesthesia moderate Procedural Complication(s) None Disposition PCU
[2018-06-04] MEDS ORDERED: CARBOHYDRATES FOR HYPOGLYCEMIA PO PRN (15:17)
[2018-06-04] MEDS ORDERED: GLUCAGON FOR INJ 1 MG VIAL SQ PRN (15:17)
[2018-06-04] MEDS ORDERED: GLUCOSE 40% GEL 15 GM TUBE PO PRN (15:17)
[2018-06-04] MEDS ORDERED: GLUCOSE 10 TABS/TUBE PO PRN (15:17)
[2018-06-04] MEDS ORDERED: DEXTROSE 50% 50 ML SYRINGE IV PRN (15:17)
[2018-06-04] MEDS ORDERED: PHARMACY GLYCEMIC MGMT CONSULT SCH (15:22)
[2018-06-04] MEDS ORDERED: SODIUM CHLORIDE 0.9% 1000ML 1,000 ML IV SCH (15:30)
--- NOTE | 2018-06-04 16:00 | Pharmacy Report ---
Glycemic Control Consultation - Date of Service June 04, 2018 - Scope Scope: Glycemic Pharmacist consulted by Bryant Garcia on 06/04/18 for glycemic control and to write orders per [facility] inpatient glycemic control protocol - Objective Weight: 127 kg Accuchecks BSG (last 24hrs): 06/04/18 08:06 Glucose 123 H Laboratory Data (last 24hrs): 06/04/18 08:06 Potassium 3.6 Carbon Dioxide 31 Anion Gap 4.0 Creatinine 0.95 Est Cr Clr Drug Dosing 127.0 HbA1c: Ordered for 06/04/18 - Recent Pertinent Medications Outpatient Anti-diabetic Regimen: * ? Lantus? * NovoLog 26 units SQ TIDM Risk Factors for Insulin Resistance:: * Recent Surgery * Diet * Obesity - Assessment & Plan Assessment & Plan: ASSESSMENT: * 53yo T2MD male with unknown degree of outpatient control. No recent A1c in chart. Per provider patient has "poor control" but BSG this AM suggests otherwise (123 mg/dl). Last A1c in [employer] was 12% in 2017 but this is outdated. Will order A1c for now since they do not result on weekends. * Pt s/p cardiac cath, NSTEMI. Pt with hx of CAD * + neuropathy --> will need to be placed on neuopathy precautions * Was not able to confirm outpatient dosing of insulin with patient therefore will dose SQ basal bolus insulin regimen based on weight and BSG and titrate based on BSG trends. * Outpatient regimen as reported is heavily weighted on prandial insulin. Will use slightly more aggressive CF/CR and start conservatively with basal insulin since it is not confirmed whether he is actually taking Lantus or not. Will add 0000 & 0400 overnight checks to make up any basal deficit from starting basal insulin so conservatively. * Goal is to maintain BSGs <200 mg/dl (ideally <150 mg/dl) to prevent post-op infectious complications. PLAN FOR INPATIENT GLYCEMIC CONTROL: * Basal insulin: Start low and titrate upwards based on BSGs. * Lantus SQ Q24hrs based on BSG * BSG < 100 mg/dl --> 0 units * BSG 100 - 140 mg/dl --> 12 units * BSG 141 - 180 mg/dl --> 22 units * BSG above 180 mg/dl --> 34 units * Bolus insulin * NovoLog per scale ACHS or Q6hrs while NPO. Additional checks at 0000 & 0400 tonight * Goal Range: Low 110 mg/dL - High 140 mg/dL * Correction Factor: 20 mg/dL/unit * Nutritional / Prandial insulin per carb ratio of 1 unit per 6 grams CHO consumed * HbA1c MIGEL- to help determine discharge recs * Please note that the plan above was derived based on current level of insulin resistance and hospital stress. These recommendations are appropriate for inpatient admission only. Plan of care upon discharge will need to be reassessed to avoid potential outpatient hypo/hyperglycemia. Thank you.
--- NOTE | 2018-06-04 17:16 | Cardiac Catheterization ---
Cardiac Cath Procedure Full Procedure Date June 04, 2018 Pre-Procedure Diagnosis Pre-Procedure Diagnosis: Non STEMI AUC Score AUC Score: 7 Post-Procedure Diagnosis Post-Procedure Diagnosis: Severe CAD and Successful PCI Procedure(s) Performed Procedure(s) Performed: Coronary Angiography, Left Heart Cath, PTCA, Drug Eluting Stent, Ultrasound Guided Vascular Access and Fractional Flow Louisa Buyer Broker Jd Cerrato MD Popcorn Candy Maker(s) Jourdan Estimated Blood Loss Estimated Blood Loss: 20 Medication(s) Medication(s): Clopidogrel, Fentanyl, Heparin, Lidocaine 1%, Nicardipine, Nitroglycerin and Versed Summary of Findings Severe mid to distal in-stent restenosis Moderate to severe mid RCA disease. PCI with single ANNIKA (3.0 x 28 Xience ANNIKA) to mid LAD and POBA to distal LAD stent IFR of moderate RCA (iFR 0.92). Indication: High risk NSTEMI. History of multiple prior PCI with ANNIKA to proximal to distal LAD Access: 6 Fr right radial artery under ultrasound guidance Catheters: [place], JL 3.5, EBU 3.5 guide Findings: LM -luminal irregularities LAD -moderate caliber vessel, prior stents from proximal to distal vessel, mild proximal in-stent restenosis, severe 90+% mid to distal in-stent restenosis after takeoff of second diagonal. Small second diagonal with 90% ostial st enosis and KAI II flow. Competitive flow in apical LAD via right to left collaterals. Circumflex - Large caliber vessel, diffuse 20-30% mid to distal disease. Large left PLB without significant disease RCA -large caliber vessel, 60% earlymid stenosis, 20-30% ostial right PDA. PDA provides right to left collaterals to LAD. LVEDP -17 -- PCI -- Antithrombotic therapy: Heparin, clopidogrel Procedure: Left main cannulated with EBU 3.5 guide Information And Referral Director 50 wire passed across lesion into distal vessel Attempt made to wire into second diagonal but unable to pass whisper/check pilot 50 in the distal vessel Mid LAD in-stent restenosis predilated with 2.5 compliant balloon, 3.0 angiosculpt balloon Dilated in-stent restenosis restented with 3.0 x 28 mm Xience Mary drug- eluting stent Stent post-dilated with 3.5 noncompliant balloon Noted to have persistent restenosis in the distal aspect of stents and distal stent dilated with 2.5 compliant balloon Post stenting small second diagonal with no appreciable flow IC vasodilators administered for spasm Post procedure KAI 3 flow, stent well expanded with minimal residual stenosis and no apparent cardiac complications. RCA cannulated with JR4 guide Straight FFR wire placed into distal RCA iFR 0.93 Post procedure no apparent coronary complications. Right to left collaterals no longer present. Arterial Closure: TR band Summary: 1. Severe single vessel coronary artery disease - 90+% diffuse mid to distal LAD in-stent restenosis - 60% mid RCA (non-obstrucive post PCI to LAD, iFR 0.93). 2. Borderline elevated intracardiac filling pressure 3. Successful PCI of diffuse severe mid to distal LAD in-stent restenosis with new overlapping drug-eluting stent (3.0 x 28 Xience Mary; post-dilated with 3.5 NC). 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 Cardiac Status Clinical evaluation leading to the procedure CAD Presenation: Non STEMI Anginal Classification: CCS IV Heart Failure: No Cardiogenic Shock within 24 Hours: No Cardiac Arrest within 24 Hours: No Imaging Studies Past 6 Months: No Stress Studies Past 6 Months: No Diagnostic Physicians Name: Jd Cerrato MD Status: Urgent Closure Device Percutaneous Entry Location: Radial Closure Device: Radial Band Recommendations: PCI without planned CABG PCI Indication: PCI for high risk Non-YOBANI Lesion Segment Name: mid LAD Culprit Artery: Yes Stenosis Prior to Rx (%): 90 Chronic Total Occlusion: No IVUS: No FFR: No Pre-Procedure KAI Flow: 2 Previously Treated Lesion: Timeframe: 1-2 years Treated with Stent: Yes In-Stent Restenosis: Yes Stent Type: ANNIKA Yes Lesion Complexity: High/C Lesion Length (mm): 30 Thrombus Present: No Bifurcation Lesion: Yes Guidewire Across Lesion: Stenosis Post-Procedure (%): 0 Post-Procedure KAI Flow: 3 Devices(s) Deployed: Yes Yes Intraprocedure Events Significant Disection: No Perforation: No
[2018-06-04] MEDS: INSULIN ASPART 100 UNITS/ML 3 ML PEN SC SCH ×2 (17:25→20:42)
[2018-06-04] MEDS: METOPROLOL TARTRATE 25 MG TAB PO SCH (20:50)
[2018-06-04] MEDS: GABAPENTIN 600 MG TAB PO SCH (20:50)
[2018-06-04] MEDS: INSULIN GLARGINE SOLOSTAR 100 UNITS/ML 3 ML PEN SC SCH (21:06)
[2018-06-05] MEDS: INSULIN ASPART 100 UNITS/ML 3 ML PEN SC SCH ×6 (04:03→20:50)
[2018-06-05 06:59] LABS: Basophils # (auto) 0.02 K/uL (0-0.2); Basophils % (auto) 0.3 %; Eosinophils # (auto) 0.13 K/uL (0-0.5); Eosinophils % (auto) 2.2 %; Hematocrit (blood only) 44.5 % (42-52); Hemoglobin 15.5 g/dL (14.0-18.0); Immature Granulocytes # (auto) 0.01 K/uL (0.00-0.02); Immature Granulocytes % (auto) 0.2 %; Lymphocytes # (auto) 1.12 K/uL (1.2-3.4); Lymphocytes % (auto) 18.8 %; Mean Corpuscular Hgb Conc 34.8 g/dL (32-36); Mean Corpuscular Volume 87.6 fL (80-100); Monocytes # (auto) 0.47 K/uL (0.11-0.59); Monocytes % (auto) 7.9 %; Neutrophils # (auto) 4.21 K/uL (1.4-6.5); Neutrophils % (auto) 70.6 %; Platelet Count 147 K/uL (130-400); RDW Coefficient of Variation 12.7 % (11.5-14.5); RDW Standard Deviation 40.8 fL (36.4-46.3); Red Blood Count 5.08 M/uL (4.7-6.1); White Blood Count 5.96 K/uL (4.8-10.8)
[2018-06-05 07:19] LABS: BUN Creatinine Ratio 16.1 (10-20); Calcium 8.5 mg/dl (8.5-10.1); Creatinine Clr Calc Pharmacy 158.2 ml/min; Est GFR (African American) 120.3; Est GFR (Non-African American) 103.8
[2018-06-05 07:29] LABS: Estimated Average Glucose 283 mg/dl; Hemoglobin A1C 11.5 % (4.5-5.6)
[2018-06-05] MEDS: GABAPENTIN 600 MG TAB PO SCH ×2 (07:43→20:04)
[2018-06-05] MEDS: ASPIRIN 81 MG ECTAB PO SCH (07:43)
[2018-06-05] MEDS: AMLODIPINE BESYLATE 5 MG TAB PO SCH (07:44)
[2018-06-05] MEDS: METOPROLOL TARTRATE 25 MG TAB PO SCH ×2 (07:44→20:04)
[2018-06-05] MEDS: PANTOprazole 40 MG TAB PO SCH (07:45)
[2018-06-05] MEDS: CITALOPRAM 20 MG TAB PO SCH (07:46)
[2018-06-05] MEDS: ISOSORBIDE MONO EXTENDED REL 60 MG TABCR PO SCH (07:46)
[2018-06-05] MEDS ORDERED: ROSUVASTATIN CALCIUM 10 MG TAB PO SCH (09:00)
[2018-06-05] MEDS ORDERED: INSULIN GLARGINE SOLOSTAR 100 UNITS/ML 3 ML PEN SC SCH (09:00)
[2018-06-05] MEDS ORDERED: ASPIRIN 81 MG ECTAB PO SCH (09:00)
[2018-06-05] MEDS ORDERED: CLOPIDOGREL BISULFATE 75 MG TAB PO SCH ×2 (09:00)
[2018-06-05] MEDS ORDERED: PROMETHAZINE HCL 12.5 MG in SODIUM CHLORIDE 0.9% 50 ML IV PRN (09:31)
[2018-06-05] MEDS ORDERED: ALUMINUM/MAGNESIUM SUSP 30 ML UDC PO PRN (09:32)
--- NOTE | 2018-06-05 10:24 | Pharmacy Report ---
Glycemic Control Progress Note - Date of Service June 05, 2018 - Scope Glycemic Pharmacist consulted for glycemic control to write orders per [facility] inpatient glycemic control protocol. - Objective Accuchecks BSG(last 24 hours):: 06/04/18 06/04/18 06/04/18 16:28 20:37 23:58 Glucose POC Glucose 142 H 179 H 211 H 06/05/18 06/05/18 06/05/18 03:56 06:44 07:43 Glucose 189 H POC Glucose 210 H 177 H HbA1c:: Hemoglobin A1c 11.5 % (4.5-5.6) H 06/04/18 08:08 - Recent Pertinent Medications The patient is currently receiving: * Basal insulin: Lantus 22 units X 1 * Correctional Insulin: Novolog Correction per scale ACHS Goal Range: Low 110 mg/dL - High 140 mg/dL Correction Factor: 20 mg/dL/unit * Prandial insulin: Per carb ratio of 1 unit per 6 grams CHO consumed - Outpatient Anti-Diabetic Meds NON-COMPLIANT - Assessment & Plan ASSESSMENT: * See progress note from 06/04/18 for more background info, in short: * Pt receiving SQ basal bolus insulin regimen for hyperglycemia secondary to baseline DM (outpatient regimen on hold), s/p cardiac catheterization POD 1. * Patient is currently receiving an average of 35 units of insulin per day * 22 units of basal insulin * 13 units of prandial/correctional insulin * BSGs ranging 123 - 211 mg/dl over the past 24hrs * Changes needed to insulin regimen: * AM Fasting BSG = 189 mg/dl. This is above goal range for patient based on inpatient targets and co-morbidities. Therefore Basal insulin will be increased. Estimate that patient will require around 20 units of basal twice daily (slightly less than weight-based stress of 2). Therefore will give weight-based stress of 2 + what patient required overnight (8units). Scale for this evening as uncertain how patient will respond. * Post-prandial BSGs did go up after dinner yesterday so tightened slightly. Patient eat before blood sugar drawn for breakfast so told nurse to just cover carbohydrates * Total daily dose = ~100 units. PLAN FOR INPATIENT GLYCEMIC CONTROL: * Starting Lantus 30 x1 units SQ then 0-20 units SQ HS * Hold if blood sugar under 160 mg/dL * Lantus 10 units if blood sugar 160-180 mg/dL * Lantus 20 units if blood sugar over 180 mg/dL * Tightening correction factor to 15 mg/dl/unit * Tightening carb ratio to 1 unit per 5 grams CHO consumed * Continuing goal range of Low 110 mg/dL - High 140 mg/dL RECOMMENDATIONS FOR DISCHARGE: * Patient could consider NPH or Regular from [employer] (Relion brand) which is only ~25 dollars * If utilizing Relion brand consider 15 units SQ BIDM and titrate upwards * Please note that the plan above was derived based on current level of insulin resistance and hospital stress. These recommendations are appropriate for inpatient admission only. Plan of care upon discharge will need to be reassessed to avoid potential outpatient hypo/hyperglycemia. Thank you.
--- NOTE | 2018-06-05 12:05 | Hospitalist Progress Note ---
Date of Service June 05, 2018 Assessment & Plan (1) Non-ST elevated myocardial infarction (non-STEMI): Status post cardiac cath and noted to have: Severe mid to distal in-stent restenosis Moderate to severe mid RCA disease. PCI with single ANNIKA (3.0 x 28 Xience ANNIKA) to mid LAD and POBA to distal LAD stent Heparin gtt started in ED and later on discontinued Continue outpatient beta elsie, statin, aspirin, plavix, imdur. Pt was on Brillenta in the past but this was stopped due to concern that it was worsening shortness of breath Appreciate cardiology input and recommendation Patient remains free of any chest pain (2) Diabetes: - Consult pharmacy for glycemic management - Check A1c in AM - Continue gabepentin for neuropathy (3) CAD (coronary artery disease): See above plan for NSTEMI (4) Dyslipidemia: - Continue outpatient statin therapy - clarified with patient that he is now on Crestor, not Lipitor as initially put in the med rec - Check lipid panel in AM (5) Diabetic neuropathy: (6) Acid reflux: - Continue outpatient PPI therapy - Consider adding H2 elsie for breakthrough symptoms -Has significant reflux disease -We will add Maalox and/or Mylanta as needed -Phenergan for nausea and/or vomiting (7) Essential hypertension: - Continue amlodipine, metoprolol as taken outpatient Subjective 06/05 The patient was seen and examined in the telemetry unit Chief complaint history of burning epigastric pain with nausea That has been going on since before admission Denies any chest pain and/or palpitation Constitutional: + fatigue and + anorexia; no fever, no chills and no malaise Respiratory: + cough and + dyspnea on exertion; no chest congestion and no wheezing Cardiovascular: + chest pain, + chest pain with activity, + radiating jaw, neck or arm pain, + orthopnea, + paroxysmal nocturnal dyspnea, + lightheadedness and + edema; no syncope Gastrointestinal: + heartburn and + nausea; no abdominal pain, no vomiting, no change in bowel habits, no blood in stools and no melena Genitourinary (Male): + urinary frequency; no dysuria, no difficulty urinating and no urinary hesitancy Musculoskeletal: + back pain and + joint pain (chronic) Neurologic: + headache(s); no falls, no seizure-like activity and no syncope Physical Exam Vital Signs (Past 24 Hours): Last Vital Signs Temp 36.7 C 06/05/18 10:57 Pulse 61 06/05/18 10:57 Resp 16 06/05/18 10:57 BP 128/75 06/05/18 10:57 Pulse Ox 97 06/05/18 10:57 Physical Exam: No apparent distress at rest Constitutional: WD/WN, vitals as above Eyes: PERRL, conjunctivae normal, anicteric sclerae EOM intact bilaterally ENMT: external ear and nose normal, oropharynx normal Neck: trachea midline Respiratory: normal respiratory effort, lungs clear to auscultation Cardiovascular: Rate/Rhythm: regular rate and regular rhythm Heart Sounds: + murmur; no gallop and no cardiac rub Vessels: no JVD and no carotid bruit Gastrointestinal (Abdomen): Inspection/Auscultation: abdomen normal to inspection, + abdomen distended and normal bowel sounds Percussion/Palpation: + abdomen tender (Mildly tender in the epigastrium) and abdomen soft Musculoskeletal: Extremities: no cyanosis and no clubbing Skin: no rashes, warm and dry normal turgor; no jaundice Neurologic: moves all extremities; no focal motor deficits Cranial Nerves: tongue midline and able to rotate head bilaterally Psychiatric: A+Ox3, euthymic affect Results & Data Laboratory Results Short CBC 06/05/18 Range/Units 06:44 WBC 5.96 (4.8-10.8) K/uL Hgb 15.5 (14.0-18.0) g/dL Hct 44.5 (42-52) % Plt Count 147 (130-400) K/uL BMP 06/05/18 06:44 Sodium 138 Potassium 4.0 Chloride 105 Carbon Dioxide 30 BUN 13 Creatinine 0.78 Glucose 189 H Calcium 8.5 Cardiac Enzymes 06/04/18 Range/Units 16:41 Troponin I 0.091 H* (0-0.045) ng/ml Medications Administered Current Inpatient Medications Acetaminophen (Tylenol) 650 mg PO Q4H PRN PRN Reason: Mild Pain (scale 1-3) Stop: 07/04/18 14:41 Al Hydrox/Mg Hydrox/Simethicone (Maalox) 30 ml PO Q6H PRN PRN Reason: Dyspepsia Stop: 07/05/18 09:31 Amlodipine Besylate (Norvasc) 2.5 mg PO DAILY [facility] Stop: 07/05/18 08:59 Last Admin: 06/05/18 07:44 Dose: 2.5 mg Documented by: [facility]irin ([facility]rin Ectab) [facility] Stop: 07/05/18 08:59 Last Admin: 06/05/18 07:43 Dose: 81 mg Documented by: Citalopram Hydrobromide (Celexa) 20 mg PO DAILY [facility] Stop: 07/05/18 08:59 Last Admin: 06/05/18 07:46 Dose: 20 mg Documented by: Clopidogrel Bisulfate (Plavix) 75 mg PO [facility] Stop: 07/05/18 08:59 Last Admin: 06/05/18 07:45 Dose: 75 mg Documented by: Dextrose (Dextrose 50%) 25 - 50 ml IV UD PRN; Protocol PRN Reason: Hypoglycemia Protocol Stop: 07/04/18 15:16 Gabapentin (Neurontin) 600 mg PO BID [facility] Stop: 07/04/18 20:59 Last Admin: 06/05/18 07:43 Dose: 600 mg Documented by: Glucagon (Glucagen) 1 mg SQ UD PRN; Protocol PRN Reason: Hypoglycemia Protocol Stop: 07/04/18 15:16 Glucose (Glucose 40%) 15 - 30 gm PO UD PRN; Protocol PRN Reason: Hypoglycemia Protocol Stop: 07/04/18 15:16 Glucose (Dex4 Glucose) 4 - 8 tabs PO UD PRN; Protocol PRN Reason: Hypoglycemia Protocol Stop: 07/04/18 15:16 Promethazine HCl 12.5 mg/ (Sodium Chloride) 50.5 mls @ 202 mls/hr IV Q6H PRN PRN Reason: Nausea And Vomiting Stop: 07/05/18 09:30 Last Admin: 06/05/18 11:37 Dose: 202 mls/hr Documented by: Insulin Aspart (Novolog Flexpen) 0 units SC ACHS [facility]; Protocol Stop: 07/04/18 16:29 Last Admin: 06/05/18 08:04 Dose: 5 units Documented by: Insulin Glargine (Lantus Solostar Pen) 0 units SC HS [facility]; Protocol Stop: 07/04/18 20:59 Last Admin: 06/04/18 21:06 Dose: 22 units Documented by: Ioversol (Optiray 320 125ml) 120 ml IV ONCE PRN PRN Reason: Interaction Checking Stop: 06/08/18 09:44 Last Admin: 06/04/18 09:45 Dose: 1 ml Documented by: Isosorbide Mononitrate (Imdur Extended Rel) 60 mg PO DAILY [facility] Stop: 07/05/18 08:59 Last Admin: 06/05/18 07:46 Dose: 60 mg Documented by: Metoprolol Tartrate (Lopressor) 75 mg PO BID [facility] Stop: 07/04/18 20:59 Last Admin: 06/05/18 07:44 Dose: 75 mg Documented by: Miscellaneous (Carbohydrates For Hypoglycemia) 15 - 30 gm PO UD PRN PRN Reason: Hypoglycemia Treatment Stop: 07/04/18 15:16 Miscellaneous Information (Consult Glycemic Management Pharmacy) 1 ea N/A UD [facility]; Protocol Stop: 07/04/18 15:21 Pantoprazole Sodium (Protonix) 40 mg PO DAILY [facility] Stop: 07/05/18 08:59 Last Admin: 06/05/18 07:45 Dose: 40 mg Documented by: Rosuvastatin Calcium (Crestor) 10 mg PO DAILY [facility] Stop: 07/05/18 08:59 Last Admin: 06/05/18 07:43 Dose: 10 mg Documented by: (1) Diabetes Diabetes mellitus type: type 2 Diabetes mellitus skilled nursing insulin use: with hot mill roller use Diabetes mellitus complication status: with neurologic complications Diabetes mellitus complication detail: with unspecified neuropathy Qualified Code(s): E11.40 - Type 2 diabetes mellitus with diabetic neuropathy, unspecified; 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 transplanted heart: [place] heart Associated angina: with unspecified angina Qualified Code(s): I25.119 - Atherosclerotic heart disease of [place] coronary artery with unspecified angina pectoris (3) Diabetic neuropathy Diabetes mellitus type: type 2 Diabetes mellitus complication detail: diabetic polyneuropathy Qualified Code(s): E11.42 - Type 2 diabetes mellitus with diabetic polyneuropathy (4) Acid reflux Esophagitis presence: esophagitis presence not specified Qualified Code(s): K21.9 - Gastro-esophageal reflux disease without esophagitis
--- NOTE | 2018-06-05 14:24 | Cardiology Progress Note ---
Date of Service June 05, 2018 Assessment & Plan (1) Non-ST elevated myocardial infarction (non-STEMI): Status post drug-eluting stent implantation to the mid left anterior descending artery. Will transition from clopidogrel to Brilinta 90 mg twice daily. First dose to be given in the a.m. 06/06/18. Increase Crestor to 20 mg daily. Continue isosorbide monohydrate and metoprolol as previously ordered. Tentative plan for discharge in 24-48 hours. Subjective Patient seen and examined the bedside. Denies recurrent chest discomfort or shortness of breath. ECG within normal limits. No dysrhythmias on telemetry. Tolerating current medications. Denies any wrist discomfort, ecchymosis, or hematoma. No signs/symptoms of GI/ blood loss. Offers no complaints at this time. Review of Systems All systems reviewed & are unremarkable except as noted in HPI & below Physical Exam Vital Signs (Past 24 Hours): Last Vital Signs Temp 36.7 C 06/05/18 10:57 Pulse 61 06/05/18 10:57 Resp 16 06/05/18 10:57 BP 128/75 06/05/18 10:57 Pulse Ox 97 06/05/18 10:57 Physical Exam: General: NAD, AAO x3, well nourished. HEENT: Normocephalic. Atraumatic. Conjunctiva pink, no scleral icterus. Neck: No carotid bruits, the carotid upstrokes are brisk. No JVD. No HJR Heart: Regular normal S-1 and S-2 no S-3 or S-4 gallop. No murmurs or rub appreciated. PMI is not displaced. No RV heave. Lungs: Clear bilateral without rales , rhonchi, or wheeze. Abdomen: Normal bowel sounds. Soft. Nontender. No masses or organomegaly. No abdominal bruits. Extremities: No clubbing, cyanosis, or edema. Pulses: radial=2/4, Dorsalis pedis =2/4, posterior tibial=2/4. Neuro: Cranial nerves grossly intact. No focal motor deficit.
[2018-06-05] MEDS: INSULIN GLARGINE SOLOSTAR 100 UNITS/ML 3 ML PEN SC SCH (20:51)
[2018-06-06] MEDS: TICAGRELOR 90 MG TAB PO SCH ×2 (08:12→08:23)
[2018-06-06] MEDS: METOPROLOL TARTRATE 25 MG TAB PO SCH (08:12)
[2018-06-06] MEDS: AMLODIPINE BESYLATE 5 MG TAB PO SCH (08:12)
[2018-06-06] MEDS: CITALOPRAM 20 MG TAB PO SCH (08:13)
[2018-06-06] MEDS: PANTOprazole 40 MG TAB PO SCH (08:13)
[2018-06-06] MEDS: GABAPENTIN 600 MG TAB PO SCH (08:13)
[2018-06-06] MEDS: ASPIRIN 81 MG ECTAB PO SCH (08:13)
[2018-06-06] MEDS: ISOSORBIDE MONO EXTENDED REL 60 MG TABCR PO SCH (08:13)
[2018-06-06] MEDS: INSULIN ASPART 100 UNITS/ML 3 ML PEN SC SCH ×2 (08:17→12:33)
[2018-06-06] MEDS ORDERED: INSULIN GLARGINE SOLOSTAR 100 UNITS/ML 3 ML PEN SC SCH (09:00)
[2018-06-06] MEDS ORDERED: ROSUVASTATIN CALCIUM 20 MG TAB PO SCH (09:00)
--- NOTE | 2018-06-06 09:52 | Pharmacy Report ---
Glycemic Control Progress Note - Date of Service June 06, 2018 - Scope Glycemic Pharmacist consulted for glycemic control to write orders per [facility] inpatient glycemic control protocol. - Objective Accuchecks BSG(last 24 hours):: 06/05/18 06/05/18 06/05/18 11:42 16:15 20:28 POC Glucose 176 H 154 H 183 H 06/06/18 07:13 POC Glucose 153 H HbA1c:: Hemoglobin A1c 11.5 % (4.5-5.6) H 06/04/18 08:08 - Recent Pertinent Medications The patient is currently receiving: * Basal insulin: Lantus 0-20 units every 12 hours * Correctional Insulin: Novolog Correction per scale ACHS Goal Range: Low 110 mg/dL - High 140 mg/dL Correction Factor: 15 mg/dL/unit * Prandial insulin: Per carb ratio of 1 unit per 5 grams CHO consumed - Outpatient Anti-Diabetic Meds Not taking insulin secondary to costs - Assessment & Plan ASSESSMENT: * See progress note from 06/04/18 for more background info, in short: * Pt receiving SQ basal bolus insulin regimen for hyperglycemia secondary to baseline DM (outpatient regimen on hold) and s/p cardiac cath on 06/04/18 * Patient is currently receiving an average of 83 units of insulin per day * 50 units of basal insulin * 33 units of prandial/correctional insulin * BSGs ranging 154 - 183 mg/dl over the past 24hrs * Changes needed to insulin regimen: * AM Fasting BSG = 153 mg/dl. This is slightly above goal range for patient based on inpatient targets and co-morbidities. This is improved compared to yesterday. Fix dose of 25 units twice daily for now and titrate upwards as appropriate. * Post-prandial BSGs are in range therefore no changes needed to CF/CR. * Total daily dose = 90-100 units. PLAN FOR INPATIENT GLYCEMIC CONTROL: * Starting Lantus 22 units SQ BID * Continuing correction factor of 15 mg/dl/unit * Continuing carb ratio of 1 unit per 5 grams CHO consumed * Continuing goal range of Low 110 mg/dL - High 140 mg/dL RECOMMENDATIONS FOR DISCHARGE: * Patient could consider NPH or Regular from [employer] ([employer] brand) which is only ~25 dollars * If utilizing [employer] brand consider 25 units SQ BIDM and titrate upwards * Please note that the plan above was derived based on current level of insulin resistance and hospital stress. These recommendations are appropriate for inpatient admission only. Plan of care upon discharge will need to be reassessed to avoid potential outpatient hypo/hyperglycemia. Thank you.
--- NOTE | 2018-06-06 11:06 | Hospitalist Progress Note ---
Date of Service June 06, 2018 Assessment & Plan (1) Non-ST elevated myocardial infarction (non-STEMI): Status post cardiac cath and noted to have: Severe mid to distal in-stent restenosis Moderate to severe mid RCA disease. PCI with single ANNIKA (3.0 x 28 Xience ANNIKA) to mid LAD and POBA to distal LAD stent Heparin gtt started in ED and later on discontinued Continue outpatient beta elsie, statin, aspirin, plavix, imdur. Pt was on Brillenta in the past but this was stopped due to concern that it was worsening shortness of breath Appreciate cardiology input and recommendation Denies any more cardiac symptoms and did not have any arrhythmias on monitor Has been put back on Brilinta [address] daily in place of Plavix He will be discharged this afternoon (2) Diabetes: - Consult pharmacy for glycemic management - Check A1c in AM - Continue gabepentin for neuropathy (3) CAD (coronary artery disease): See above plan for NSTEMI (4) Dyslipidemia: - Continue outpatient statin therapy - clarified with patient that he is now on Crestor, not Lipitor as initially put in the med rec - Check lipid panel in AM (5) Diabetic neuropathy: (6) Acid reflux: - Continue outpatient PPI therapy - Consider adding H2 elsie for breakthrough symptoms -Has significant reflux disease -We will add Maalox and/or Mylanta as needed -Phenergan for nausea and/or vomiting -He will continue Protonix and will get an outpatient appointment with GI within 2 weeks (7) Essential hypertension: - Continue amlodipine, metoprolol as taken outpatient Blood pressure is controlled Subjective 06/05 The patient was seen and examined in the telemetry unit Chief complaint history of burning epigastric pain with nausea That has been going on since before admission Denies any chest pain and/or palpitation 06/06 Patient was seen and examined in telemetry unit He denies any chest pain and/or palpitation Still complains to have some epigastric discomfort likely secondary to reflux Has been ambulating without any difficulty Constitutional: + fatigue and + anorexia; no fever, no chills and no malaise Respiratory: + cough and + dyspnea on exertion; no chest congestion and no wheezing Cardiovascular: + chest pain, + chest pain with activity, + radiating jaw, neck or arm pain, + orthopnea, + paroxysmal nocturnal dyspnea, + lightheadedness and + edema; no syncope Gastrointestinal: + heartburn and + nausea; no abdominal pain, no vomiting, no change in bowel habits, no blood in stools and no melena Genitourinary (Male): + urinary frequency; no dysuria, no difficulty urinating and no urinary hesitancy Musculoskeletal: + back pain and + joint pain (chronic) Neurologic: + headache(s); no falls, no seizure-like activity and no syncope Physical Exam Vital Signs (Past 24 Hours): Last Vital Signs Temp 36.6 C 06/06/18 07:15 Pulse 56 L 06/06/18 08:00 Resp 20 06/06/18 07:15 BP 93/49 L 06/06/18 07:15 Pulse Ox 95 06/06/18 07:15 Physical Exam: No apparent distress at rest. Sitting on a chair Constitutional: WD/WN, vitals as above Eyes: PERRL, conjunctivae normal, anicteric sclerae EOM intact bilaterally ENMT: external ear and nose normal, oropharynx normal Neck: trachea midline Respiratory: normal respiratory effort, lungs clear to auscultation Cardiovascular: Rate/Rhythm: regular rate and regular rhythm Heart Sounds: + murmur; no gallop and no cardiac rub Vessels: no JVD and no carotid bruit Gastrointestinal (Abdomen): Inspection/Auscultation: abdomen normal to inspection, + abdomen distended and normal bowel sounds Percussion/Palpation: + abdomen tender (Mildly tender in the epigastrium) and abdomen soft Musculoskeletal: Extremities: no cyanosis and no clubbing Skin: no rashes, warm and dry normal turgor; no jaundice Neurologic: moves all extremities; no focal motor deficits Cranial Nerves: tongue midline and able to rotate head bilaterally Psychiatric: A+Ox3, euthymic affect Results & Data Medications Administered Current Inpatient Medications Acetaminophen (Tylenol) 650 mg PO Q4H PRN PRN Reason: Mild Pain (scale 1-3) Stop: 07/04/18 14:41 Al Hydrox/Mg Hydrox/Simethicone (Maalox) 30 ml PO Q6H PRN PRN Reason: Dyspepsia Stop: 07/05/18 09:31 Last Admin: 06/05/18 20:04 Dose: 30 ml Documented by: Amlodipine Besylate (Norvasc) 2.5 mg PO DAILY [facility] Stop: 07/05/18 08:59 Last Admin: 06/06/18 08:12 Dose: 2.5 mg Documented by: Aspirin (Ecotrin Ectab) 81 mg PO QAM [facility] Stop: 07/05/18 08:59 Last Admin: 06/06/18 08:13 Dose: 81 mg Documented by: Citalopram Hydrobromide (Celexa) 20 mg PO DAILY [facility] Stop: 07/05/18 08:59 Last Admin: 06/06/18 08:13 Dose: 20 mg Documented by: Dextrose (Dextrose 50%) 25 - 50 ml IV UD PRN; Protocol PRN Reason: Hypoglycemia Protocol Stop: 07/04/18 15:16 Gabapentin (Neurontin) 600 mg PO BID [facility] Stop: 07/04/18 20:59 Last Admin: 06/06/18 08:13 Dose: 600 mg Documented by: Glucagon (Glucagen) 1 mg SQ UD PRN; Protocol PRN Reason: Hypoglycemia Protocol Stop: 07/04/18 15:16 Glucose (Glucose 40%) 15 - 30 gm PO UD PRN; Protocol PRN Reason: Hypoglycemia Protocol Stop: 07/04/18 15:16 Glucose (Dex4 Glucose) 4 - 8 tabs PO UD PRN; Protocol PRN Reason: Hypoglycemia Protocol Stop: 07/04/18 15:16 Promethazine HCl 12.5 mg/ (Sodium Chloride) 50.5 mls @ 202 mls/hr IV Q6H PRN PRN Reason: Nausea And Vomiting Stop: 07/05/18 09:30 Last Infusion: 06/05/18 11:58 Dose: Infused Documented by: Insulin Aspart (Novolog Flexpen) 0 units SC ACHS [facility]; Protocol Stop: 07/04/18 16:29 Last Admin: 06/06/18 08:17 Dose: 11 units Documented by: Insulin Glargine (Lantus Solostar Pen) 25 units SC BID [facility]; Protocol Stop: 07/06/18 08:59 Last Admin: 06/06/18 08:18 Dose: 25 units Documented by: Ioversol (Optiray 320 125ml) 120 ml IV ONCE PRN PRN Reason: Interaction Checking Stop: 06/08/18 09:44 Last Admin: 06/04/18 09:45 Dose: 1 ml Documented by: Isosorbide Mononitrate (Imdur Extended Rel) 60 mg PO DAILY [facility] Stop: 07/05/18 08:59 Last Admin: 06/06/18 08:13 Dose: 60 mg Documented by: Metoprolol Tartrate (Lopressor) 75 mg PO BID [facility] Stop: 07/04/18 20:59 Last Admin: 06/06/18 08:12 Dose: 75 mg Documented by: Miscellaneous (Carbohydrates For Hypoglycemia) 15 - 30 gm PO UD PRN PRN Reason: Hypoglycemia Treatment Stop: 07/04/18 15:16 Miscellaneous Information (Consult Glycemic Management Pharmacy) 1 ea N/A UD [facility]; Protocol Stop: 07/04/18 15:21 Pantoprazole Sodium (Protonix) 40 mg PO DAILY [facility] Stop: 07/05/18 08:59 Last Admin: 06/06/18 08:13 Dose: 40 mg Documented by: Rosuvastatin Calcium (Crestor) 20 mg PO DAILY [facility] Stop: 07/06/18 08:59 Last Admin: 06/06/18 08:13 Dose: 20 mg Documented by: Ticagrelor (Brilinta) 90 mg PO BID [facility] Stop: 07/06/18 06:59 Last Admin: 06/06/18 08:23 Dose: Not Given Documented by: (1) Diabetes Diabetes mellitus type: type 2 Diabetes mellitus [employer] insulin use: with residential use Diabetes mellitus complication status: with neurologic complications Diabetes mellitus complication detail: with unspecified neuropathy Qualified Code(s): E11.40 - Type 2 diabetes mellitus with diabetic neuropathy, unspecified; Z79.4 - [facility] (current) use of insulin (2) CAD (coronary artery disease) Coronary Disease-Associated Artery/Lesion type: [place] artery [place] vs. transplanted heart: [place] heart Associated angina: with unspecified angina Qualified Code(s): I25.119 - Atherosclerotic heart disease of [place] coronary artery with unspecified angina pectoris (3) Diabetic neuropathy Diabetes mellitus type: type 2 Diabetes mellitus complication detail: diabetic polyneuropathy Qualified Code(s): E11.42 - Type 2 diabetes mellitus with diabetic polyneuropathy (4) Acid reflux Esophagitis presence: esophagitis presence not specified Qualified Code(s): K21.9 - Gastro-esophageal reflux disease without esophagitis
--- NOTE | 2018-06-06 11:18 | Cardiology Progress Note ---
Date of Service June 06, 2018 Assessment & Plan (1) Non-ST elevated myocardial infarction (non-STEMI): Status post drug-eluting stent implantation to the mid left anterior descending artery. Transitioned from clopidogrel to Brilinta 90 mg twice daily. Will consult social work to ensure patient can afford medication. Crestor increase to 20 mg daily. Continue isosorbide monohydrate and metoprolol as previously ordered. Patient will be discharged home today. Outpatient follow-up with Dr. Goldman in 1-2 weeks. Patient instructed he may not return to work until cardiology follow-up. Subjective Patient seen and examined the bedside. Denies recurrent chest discomfort or shortness of breath. No dysrhythmias on telemetry. Received first dose of Brilinta today. Tolerating current medications. Denies any wrist discomfort, ecchymosis, or hematoma. No signs/symptoms of GI/ blood loss. Offers no complaints at this time. Review of Systems All systems reviewed & are unremarkable except as noted in HPI & below Physical Exam Vital Signs (Past 24 Hours): Last Vital Signs Temp 36.7 C 06/06/18 11:16 Pulse 58 L 06/06/18 11:16 Resp 18 06/06/18 11:16 BP 122/75 06/06/18 11:16 Pulse Ox 97 06/06/18 11:16 Physical Exam: General: NAD, AAO x3, well nourished. HEENT: Normocephalic. Atraumatic. Conjunctiva pink, no scleral icterus. Neck: No carotid bruits, the carotid upstrokes are brisk. No JVD. No HJR Heart: Regular normal S-1 and S-2 no S-3 or S-4 gallop. No murmurs or rub appreciated. PMI is not displaced. No RV heave. Lungs: Clear bilateral without rales , rhonchi, or wheeze. Abdomen: Normal bowel sounds. Soft. Nontender. No masses or organomegaly. No abdominal bruits. Extremities: Trace bilateral pedal edema. No clubbing, cyanosis. Pulses: radial=2/4, Dorsalis pedis =2/4, posterior tibial=2/4. Neuro: Cranial nerves grossly intact. No focal motor deficit.
--- NOTE | 2018-06-06 16:06 | Discharge Summary ---
Date of Service June 06, 2018 Admission HPI Per Admitting Provider Primary Care Provider: PCP - Werner Conway This is a 53 y/o male with a past history of CAD with stent placements, insulin- requiring diabetes with peripheral neuropathy, pulmonary embolus, hypertension and GERD who presents to the ED today with progressive dyspnea and chest pain, particularly on exertion. Pt reports his first cardiac cath was around 2014- 2015 when he had at least one stent placed. In September 2016, he underwent repeat cardiac cath due to anginal symptoms and was treated with PTCA for in-stent restenosis. He reports improvement that lasted about a month. He then decided to go to [place] for a second opinion. Had another cardiac cath on 12/31/16 during which a drug-eluting stent was placed in the prior placed stent in the LAD. He did have some improvement after this procedure until summer 2017 when he started with progressive respiratory symptoms. Seen again by cardiology (following locally with Dr. Goldman) and underwent repeat cardiac cath on 09/16/17 that was negative. He reports continued chest pain since that time which he describes as a chronic issue. Lost to cardiology follow-up after the cath. Over the past month, pt reports progressive chest pain and dyspnea but particul speedy worse the past two weeks. His main complaint is dyspnea on exertion, particularly with steps, eating or talking for long periods. He can do no more than one flight of steps before he has to stop and rest for a few minutes. His chest pain also gets worse with exertion. He describes a mostly non-productive cough although occasionally brings up white foamy sputum that is rarely blood- tinged (typically related to coughing hard). He has been sleeping more than usual and is feels easily fatigued. He notes orthopnea requiring him to sleep propped on 3-4 pillows. He gets lightheaded with exertion followed by increased fatigue. Denies syncopal episodes. He has noted a sensation of "skipped beats" but denies "racing heart." The chronic chest pain has been worse over the past two weeks - it may radiate to left jaw/shoulder and to back. He has been taking up to seven nitro per day for this pain with only partial relief. Appetite is decreased with nausea and heartburn at times but no vomiting. He does take pantoprazole 20 mg daily. Moving bowels at baseline of 4-5x/day - no melena or hematochezia. The patient has a history of insulin-requiring diabetes - he reports last A1c was around 9 (apparently improved from a high of 14). Admission Exam Per Admitting Provider Vital Signs (Past 24 Hours): Last Vital Signs Temp 36.4 C L 06/04/18 07:47 Pulse 81 06/04/18 11:50 Resp 16 06/04/18 11:28 BP 167/106 H 06/04/18 11:50 Pulse Ox 97 06/04/18 10:28 Constitutional: WD/WN, vitals as above Eyes: PERRL, conjunctivae normal, anicteric sclerae EOM intact bilaterally ENMT: external ear and nose normal, oropharynx normal Neck: trachea midline Respiratory: normal respiratory effort, lungs clear to auscultation Auscultation: no rales, no rhonchi and no wheezes Cardiovascular: Rate/Rhythm: regular rate and regular rhythm Heart Sounds: + murmur; no gallop and no cardiac rub Vessels: no JVD and no carotid bruit Gastrointestinal (Abdomen): Inspection/Auscultation: normal bowel sounds; abdomen not distended Percussion/Palpation: abdomen soft; abdomen nontender Musculoskeletal: Extremities: no cyanosis and no clubbing Skin: no rashes, warm and dry normal turgor; no jaundice Neurologic: moves all extremities; no focal motor deficits Cranial Nerves: tongue midline and able to rotate head bilaterally Psychiatric: A+Ox3, euthymic affect Principal Diagnosis NSTEMI, uncontrolled diabetes, GERD Discharge Exam Constitutional WD/WN, vitals as above Eyes PERRL, conjunctivae normal, anicteric sclerae EOM intact bilaterally ENMT external ear and nose normal, oropharynx normal Neck trachea midline Respiratory normal respiratory effort, lungs clear to auscultation Cardiovascular Rate/Rhythm: regular rate and regular rhythm Heart Sounds: + murmur; no gallop and no cardiac rub Vessels: no JVD and no carotid bruit Gastrointestinal (Abdomen) Inspection/Auscultation: abdomen normal to inspection, + abdomen distended and normal bowel sounds Percussion/Palpation: + abdomen tender (Mildly tender in the epigastrium) and abdomen soft Musculoskeletal Extremities: no cyanosis and no clubbing Skin no rashes, warm and dry normal turgor; no jaundice Neurologic moves all extremities; no focal motor deficits Cranial Nerves: tongue midline and able to rotate head bilaterally Psychiatric A+Ox3, euthymic affect Discharge Data Allergies Allergy/AdvReac Type Severity Reaction Status Date / Time cyclobenzaprine AdvReac Unknown Unverified 06/04/18 08:22 [From Flexeril] Consultations 06/04/18 10:41 ED Decision to Admit Stat 06/04/18 15:17 Consult Cardiology Routine 06/06/18 09:05 Consult Case Management - Discharge Planning Routine Procedures Performed Operation Date: 06/04/18 13:00 Actual Procedures p Cath, Left with Cors and Vent - Chris Cerrato MD s Cineradiography w/Routine Exam - Chris Cerrato MD s Ultrasound Vascular Access - Chris Cerrato MD s Drug Eluting Stent SGl Vessel - Chris Cerrato MD s Fraction Flow [place] SGL Ves - Chris Cerrato MD Ordered Studies 06/04/18 08:02 CT angio chest PE protocol Stat 06/04/18 12:12 CL Cath Imgs for PACS use only Stat Hospital Course (1) Non-ST elevated myocardial infarction (non-STEMI): Status post cardiac cath and noted to have: Severe mid to distal in-stent restenosis Moderate to severe mid RCA disease. PCI with single ANNIKA (3.0 x 28 Xience ANNIKA) to mid LAD and POBA to distal LAD stent Heparin gtt started in ED and later on discontinued Continue outpatient beta elsie, statin, aspirin, plavix, imdur. Pt was on Brillenta in the past but this was stopped due to concern that it was worsening shortness of breath Appreciate cardiology input and recommendation Denies any more cardiac symptoms and did not have any arrhythmias on monitor Has been put back on Brilinta [address] daily in place of Plavix He will be discharged this afternoon (2) Diabetes: - Consult pharmacy for glycemic management - Check A1c in AM - Continue gabepentin for neuropathy (3) CAD (coronary artery disease): See above plan for NSTEMI (4) Dyslipidemia: - Continue outpatient statin therapy - clarified with patient that he is now on Crestor, not Lipitor as initially put in the med rec - Check lipid panel in AM (5) Diabetic neuropathy: (6) Acid reflux: - Continue outpatient PPI therapy - Consider adding H2 elsie for breakthrough symptoms -Has significant reflux disease -We will add Maalox and/or Mylanta as needed -Phenergan for nausea and/or vomiting -He will continue Protonix and will get an outpatient appointment with GI within 2 weeks (7) Essential hypertension: - Continue amlodipine, metoprolol as taken outpatient Blood pressure is controlled Total Time Total Time Spent Total Time Spent (In Minutes): 35 minutes Total Time Includes: Examination of the Patient, Discharge Planning, Medication Reconciliation and Communication With Other Providers Discharge Plan Discharge Items Patient Disposition: Home - Self-Care Reason For Visit: ACS Discharge Diagnosis: NSTEMI, uncontrolled diabetes, GERD Condition: Good Discharge Goals: Decrease discomfort, Improve function and Increase independence Activity: Resume your previous activity Non-emergency contact: Primary Care Provider Call non-emergency contact if: you have any medication questions and your symptoms worsen Follow-up/Referrals: Werner Conway D.O. [Primary Care Provider] - (Will call you with appointments.) Diet: Carb Consistent or DM2 and Heart Healthy Addtl Provider Instructions: Please follow diabetic diet. ACTIVITY RECOMMENDATIONS: Excess manipulation of the wrist should be avoided for the next 24-48 hours. * No lifting over 2 pounds (approximately a 1/2 gallon of milk) with the utilized arm for 24 hours. * No strenuous activity such as bowling or tennis for 3 days. * Keep the site of the procedure covered with a bandage for 24 hours. *You may shower the day after the procedure. Do not take a tub bath or submerge the puncture site in water for the next 3 days. *Do not operate any motorized equipment for 3 days. SPECIAL CARE INSTRUCTIONS: The site may be slightly bruised and sore following your procedure. Should any of the following occur, contact the Dr. who performed your procedure. 1. Redness/inflammation, swelling, chills, or fever, or colored drainage at procedure site within 3-7 days after your procedure. 2. Coldness, discoloration, ongoing numbness, severe pain, or swelling. Expect mild tingling of hand and tenderness at the puncture site for up to three days. If this persists beyond three days, or other symptoms develop, notify the Dr. who performed your procedure. BLEEDING: If the procedure site on your wrist begins to bleed, do not panic 1. Place 1 or 2 fingers firmly just slightly above the insertion site to stop the bleeding. You may be able to feel your pulse as you hold pressure. 2. Lift your finger after 5 minutes to see if the bleeding has stopped. 3. Once the bleeding has stopped, gently wipe the wrist area clean with a bandage. * If the bleeding from your wrist does not stop after 10 minutes, or if there is a large amount of bleeding or spurting, call 911 (do not drive yourself to the hospital). SKIN IRRITATION: * You may experience some redness and/or swelling in the area where radiation was administered. If any skin irritation occurs, please contact your family physician. FOLLOW UP VISIT: Keep any scheduled doctor appointments. Prescriptions: New Lantus Solostar U-100 Insulin 100 unit/mL (3 mL) Insulin Pen 25 unit SC BID 30 Days Qty: 15 RF: 0 Brilinta 90 mg Tablet 90 mg PO BID 30 Days Qty: 60 RF: 0 Continued amlodipine 2.5 mg tablet 2.5 mg PO DAILY RF: 0 aspirin [Aspir-81] 81 mg Tablet,Delayed Release (Dr/Ec) 81 mg PO DAILY RF: 0 isosorbide mononitrate 60 mg tablet extended release 24 hr 60 mg PO DAILY RF: 0 citalopram 20 mg tablet 20 mg PO DAILY RF: 0 pantoprazole 40 mg tablet,delayed release (DR/EC) 40 mg PO DAILY RF: 0 metoprolol tartrate 50 mg tablet 75 mg PO BID RF: 0 nitroglycerin [Nitrostat] 0.4 mg Tablet, Sublingual 0.4 mg sublingual UD RF: 0 gabapentin 600 mg tablet 600 mg PO BID RF: 0 Changed Novolog Flexpen U-100 Insulin 100 unit/mL (3 mL) insulin pen 10 unit subcut TIDM Qty: 0 RF: 0 rosuvastatin 10 mg tablet 20 mg PO DAILY Qty: 0 RF: 0 Discontinued clopidogrel 75 mg tablet 30 mg PO DAILY RF: 0 Stand-Alone Forms: Call Back Authorization, [facility], Work/School Release (Inpt) Discharge Orders: Discharge Order (Routine); Ordered 06/06/18 Ordered By: Tony Martinez Admission Data Admit Date/Time: 06/04/18 11:39 Attending Provider: Tony Martinez Admit Provider: Jocelyne Myers Primary Care Provider: Werner Conway. Other Providers: Slim Pruitt ; Jocelyne Myers Service: Telemetry Other Interventions: Discharge Summary Assessment (RN) Last Done: 06/06/18 13:53 DC Date/Time DO NOT enter until pt leaves facility: 06/06/18 15:44
== END 2018-06-06 15:44 | disposition home or self-care (01) | DRG 247 ==
LOC: ED 07:43 → 2S 12:19 → CC 12:19 → 2S 14:44